=== PATIENT | male | born 1945 | race Caucasian/White ===

== ENCOUNTER 2021-07-04 07:04 | Emergency (ER) | payer OTHER ==
[~2021-07-04] VITALS: Ht 167.6 cm; Wt 107.0 kg
[2021-07-04 07:15] VITALS: BP_SYST 137
[2021-07-04] MEDS ORDERED: DIPHENHYDRAMINE HCL 50 MG CAPSULE PO ONE (07:30)
[2021-07-04] MEDS ORDERED: LORATADINE 10 MG TABLET PO ONE (07:30)
[2021-07-04] MEDS ORDERED: HYDR-3610 PO (07:34)
[2021-07-04] MEDS ORDERED: GLIP5TAB13 PO ×2 (07:34)
[2021-07-04] MEDS ORDERED: LIP80 PO (07:34)
[2021-07-04] MEDS ORDERED: DULA4.5P (07:34)
[2021-07-04] MEDS ORDERED: FEBU40TA PO (07:34)
[2021-07-04] MEDS ORDERED: NOR10 PO (07:34)
[2021-07-04] MEDS ORDERED: LORA-259 PO (07:34)
[2021-07-04] MEDS ORDERED: FURO-149 PO (07:34)
[2021-07-04] MEDS ORDERED: METF-518 PO ×2 (07:34)
[2021-07-04] MEDS ORDERED: CLOP75TA32 PO (07:38)
[2021-07-04] MEDS ORDERED: ASPI-1393 PO (07:38)
[2021-07-04] MEDS ORDERED: METO50TA7 PO (07:38)
[2021-07-04] MEDS ORDERED: BEN50 PO (07:41)
[2021-07-04] MEDS ORDERED: HYDC2.5% TP (07:41)
[2021-07-04] MEDS ORDERED: FEXO-25 PO (07:44)
[2021-07-04] MEDS ORDERED: EPIN0.3P3 IM (07:44)
[2021-07-04 08:00] VITALS: BP_SYST 139
== END 2021-07-04 08:00 | disposition home or self-care (01) ==
LOC: SED 07:04
DX: L20.9 Atopic dermatitis, unspecified (principal); E11.9 Type 2 diabetes mellitus without complications; Z79.899 Other long term (current) drug therapy; Z79.84 Long term (current) use of oral hypoglycemic drugs
CPT/HCPCS: 99283; Q0163

== ENCOUNTER 2021-11-14 08:13 | Inpatient (IN) | payer OTHER ==
[2021-11-14] VITALS (10 sets, daily range): BP systolic 60–133
[~2021-11-14] VITALS: Ht 167.6 cm; Wt 102.7 kg
[~2021-11-14 08:13] MED LIST: ASPI-1393 PO; BEN50 PO; CLOP75TA32 PO; DULA4.5P; EPIN0.3P3 IM; FEBU40TA PO; FEXO-25 PO; FURO-149 PO; GLIP5TAB13 PO; HYDC2.5% TP; LIP80 PO; LORA-259 PO; METF-518 PO; METO50TA7 PO; NOR10 PO
--- NOTE | 2021-11-14 08:13 | NUR ---
Pt to bed 1 for evaluation. Report received from [facility].
--- NOTE | 2021-11-14 08:13 | NUR ---
Dr. Lu at bedside to assess. 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
--- NOTE | 2021-11-14 08:14 | NUR ---
Pt BIBA from home. Pt to bed #1, pt is cool to the touch and is lethargic. Pt is awake and alert but very weak. 2L IV initiated bolus on left 20g IV that was placed by medics in route. NKA. Pt has hx of DM, cardiac disorders and CABG. HR at 110 and BP is at 71/56. Placed bed in trandelenburg position. BS checked and results were 65. RT at bedside doing ABG's.
--- NOTE | 2021-11-14 08:15 | NUR ---
EKG performed at BS by RN students. Physician given copy of EKG for review.
[2021-11-14] MEDS ORDERED: DEXTROSE 50% JECT 50 ML DISP.SYRIN ONE (08:28)
[2021-11-14] MEDS ORDERED: cefTRIAXone 1 GM IVPB PREMIX 50 ML IV ONE (08:30)
[2021-11-14] MEDS ORDERED: DEXTROSE 50% JECT 50 ML DISP.SYRIN IVP ONE (08:30)
[2021-11-14] MEDS ORDERED: NS 1000 ML IV.SOLN IV ONE (08:30)
--- NOTE | 2021-11-14 08:30 | NUR ---
Pt placed on NC running at 3L. Pt still hypotensive. D50 given IV push.
--- NOTE | 2021-11-14 08:45 | NUR ---
Portable CXR done at bedside.
--- NOTE | 2021-11-14 08:53 | NUR ---
Dr. Lu at bedside preparing to place Central line in pt.
[2021-11-14] MEDS ORDERED: NOREPINEPHRINE BITARTRATE 4 MG in NS 246 ML IV ONE (09:30)
--- NOTE | 2021-11-14 09:40 | NUR ---
Called [facility] to bring the Levophed order medication. They stated they will bring medication as soon as possible.
[2021-11-14] MEDS ORDERED: CLOP75TA32 PO (09:42)
[2021-11-14] MEDS ORDERED: PANT20TA2 PO (09:42)
[2021-11-14] MEDS ORDERED: LORA-259 PO (09:42)
--- NOTE | 2021-11-14 09:42 | NUR ---
Medication reconciliation completed with information provided by PT'S FAMILY MEMBER. Any prior medication reconciliation on file was reviewed and corrected.
[2021-11-14 09:49] LABS: ANION GAP 22 (5-15); CHLORIDE 101 mmol/L (98-107); CREATININE 4.88 mg/dL (0.55-1.30); GLUCOSE 167 mg/dL (70-99); POTASSIUM 4.4 mmol/L (3.5-5.1); SODIUM SERUM 137 mmol/L (136-145); UREA NITROGEN, BLOOD 45 mg/dL (8-21)
[2021-11-14 09:54] LABS: INR 1.4 (0.80-1.20)
[2021-11-14 10:01] LABS: BASOPHILS # (AUTO) 0.1 K/uL (0.0-0.2); BASOPHILS % (AUTO) 0.2 % (0.0-2.0); EOSINOPHILS # (AUTO) 0.1 K/uL (0.0-0.4); EOSINOPHILS % (AUTO) 0.2 % (0.0-4.0); HEMATOCRIT 29.7 % (36-54); HEMOGLOBIN 9.4 g/dL (14.0-18.0); LYMPHOCYTES # (AUTO) 0.7 K/uL (1.0-5.5); LYMPHOCYTES % (AUTO) 2.2 % (20.5-51.5); MEAN CORPUSCULAR HEMOGLOBIN 27 pg (27-31); MEAN CORPUSCULAR HGB CONC 32 % (32-36); MEAN CORPUSCULAR VOLUME 87 fL (79.0-98.0); MONOCYTES # (AUTO) 1.4 K/uL (0.0-1.0); MONOCYTES % (AUTO) 4.6 % (1.7-9.3); NEUTROPHILS # (AUTO) 28.2 K/uL (1.8-7.7); NEUTROPHILS % (AUTO) 92.8 % (40.0-70.0); PLATELET COUNT (AUTO) 116 K/uL (130-430); RED BLOOD CELL COUNT(AUTO) 3.42 MIL/uL (4.2-6.2); RED CELL DISTRIBUTION WIDTH 17.8 % (9.0-15.0)
[2021-11-14 10:03] LABS: WHITE BLOOD COUNT (AUTO) 30.4 K/uL (4.8-10.8)
[2021-11-14 10:06] LABS: ALANINE AMINOTRANSFERASE 366 U/L (12-78); ALBUMIN 1.6 g/dL (3.4-4.8); PROTHROMBIN TIME 14.7 SECS (9.5-12.5); TOTAL BILIRUBIN 4.1 mg/dL (0.0-1.0)
[2021-11-14] MEDS ORDERED: NACL 0.9% 1,000 ML IV ONE (10:15)
[2021-11-14] MEDS ORDERED: ASPIRIN 325 MG TABLET PO ONE (10:15)
--- NOTE | 2021-11-14 10:15 | NUR ---
Critical labs called and reported to Dr. Lu. Pt to CT via burke accompanied by EMMETT.
[2021-11-14 10:20] LABS: ASPARTATE AMINOTRANSFERASE 1052 U/L (10-37)
--- NOTE | 2021-11-14 10:38 | NUR ---
Pt is A&Ox4. BP currently at 92/41 and HR at 105, O2 at 95% with NC running at 5L. Ultrasound currently being done at bedside and is at bedside as well. Central line on right neck intact and dressed.
--- NOTE | 2021-11-14 10:43 | NUR ---
Covid swab done and sent to lab.
--- NOTE | 2021-11-14 11:03 | NUR ---
KULDEEP BS BY RN STUDERNT RESULTS 145 MADE MD FUENTES AWARE
--- NOTE | 2021-11-14 11:55 | NUR ---
16F Coudey Catheter placed using sterile technique.
--- NOTE | 2021-11-14 12:43 | NUR ---
Patient will be admitted to care of Dr. Benito. Admitted to ICU unit. Will go to room 4. Belongings list completed. Complete and up to date summary report printed. SBAR report to be given at bedside with opportunity for questions.
[2021-11-14] MEDS ORDERED: VANCOMYCIN HCL 1,500 MG in NS 250 ML IV ONE (13:00)
--- NOTE | 2021-11-14 13:00 | NUR ---
Alireza Seo RN is caring for this patient today
[2021-11-14] MEDS ORDERED: NALOXONE HCL 0.4 MG/ML AMP (NARCAN) IVP PRN ×2 (13:15)
[2021-11-14] MEDS ORDERED: MAGNESIUM SULFATE 50 ML IV PRN (13:15)
[2021-11-14] MEDS ORDERED: PIPERACILLIN/TAZO 3.375/DEX-IS 50 ML IV SCH (13:15)
[2021-11-14] MEDS ORDERED: ACETAMINOPHEN 325 MG TABLET PO PRN (13:15)
[2021-11-14] MEDS ORDERED: POTASSIUM CHLORIDE 20 MEQ TAB.PRT.SR PO PRN (13:15)
[2021-11-14] MEDS ORDERED: ZOLPIDEM TARTRATE 5 MG TABLET PO PRN (13:15)
[2021-11-14] MEDS ORDERED: MUPIROCIN 2% TOPICAL OINTMENT 22 GM NS PRN (13:15)
[2021-11-14] MEDS ORDERED: LORazepam 2 MG/ML VIAL IVP PRN (13:15)
[2021-11-14] MEDS ORDERED: ONDANSETRON HCL 4 MG/2 ML VIAL IVP PRN (13:15)
--- NOTE | 2021-11-14 13:15 | NUR ---
Called Dr. House with a consult, spoke with Omar from the exchange
--- NOTE | 2021-11-14 13:15 | NUR ---
Called Dr. Davison with a consult, spoke with Lidia from the exchange
[2021-11-14] MEDS ORDERED: ZOSYN (PIPERACILLIN/TAZO) 2.25 GM in DEX-ISO (50ml) IV ONE (13:30)
--- NOTE | 2021-11-14 13:30 | NUR ---
PT [id number], CALLUM HAHN TAKING CARE OF PT, PT ON LEVOPHED DRIP, PLACED ON 2L NC///PT LEVOPHED BEING TITRATED NOW//PT LOSES STRENGTH WITH ACTIVITY, BUT PT STATES FEELS BETTER NOW//TROPONIN IS UP AND DOWN, BUT PT DENIES CHEST PAIN, IS ON 2L O2 AND TOLERATING AT 94%//MW
--- NOTE | 2021-11-14 13:30 | NUR ---
Called Dr. Sommer with a consult,spoke with Martine from doctors office
[2021-11-14] MEDS: NACL 0.9% 1,000 ML IV SCH ×2 (13:41→21:40)
[2021-11-14] MEDS: ZOSYN (PIPERACILLIN/TAZO) 2.25 GM in DEX-ISO (50ml) IV SCH ×2 (13:42→22:00)
[2021-11-14] MEDS ORDERED: NS 500 ML IV ONE ×2 (14:15→20:30)
--- NOTE | 2021-11-14 15:15 | NUR ---
Called Dr. Montejo with a consult, Dr. Newman donor services team leader at this time. Spoke with Flaiva from doctors office
[2021-11-14 17:06] LABS: TOTAL IRON BIND. CAPACITY 200 ug/dL (250-450)
[2021-11-14 17:13] LABS: ACETAMINOPHEN < 1 ug/mL (1-30)
[2021-11-14] MEDS: MORPHINE 2 MG/ML INJ. SYRINGE IVP PRN (18:43)
--- NOTE | 2021-11-14 18:49 | NUR ---
levophed turned off, paged dr joshua rowan calcitonin level//mw
--- NOTE | 2021-11-14 19:16 | NUR ---
SPOKE TO DR CARO RE PROCALCITONIN LEVEL, AND LEVOPHED OFF//NO ORDERS//POSSPARACENTESIS IM.A.M.//KT
--- NOTE | 2021-11-14 19:45 | NUR ---
RECEIVED REPORT FOR PT. LEVOPHED HAS BEEN STOPPED AND PT IS CURRENTLY ON FLUID. IS AT BEDSIDE. VITALS ARE STABLE. LORENE BOYER
[2021-11-14] MEDS: HEPARIN SODIUM,PORCINE 5,000 UNITS/ML VIAL SUBCUT SCH (21:00)
[2021-11-14] MEDS: metroNIDAZOLE 500 mg/NS 100 ML IV SCH (21:00)
[2021-11-15] VITALS (23 sets, daily range): BP systolic 90–126
--- NOTE | 2021-11-15 02:55 | NUR ---
Critical troponin of 602. MD Roldan was informed
[2021-11-15] MEDS: NACL 0.9% 1,000 ML IV SCH ×4 (03:26→18:32)
[2021-11-15] MEDS: ZOSYN (PIPERACILLIN/TAZO) 2.25 GM in DEX-ISO (50ml) IV SCH (05:25)
[2021-11-15] MEDS: METOPROLOL SUCCINATE 25 MG TAB.SR.24H (TOPROL XL) PO SCH ×3 (06:07→20:25)
[2021-11-15 07:05] LABS: INR 1.3 (0.80-1.20); PROTHROMBIN TIME 13.1 SECS (9.5-12.5)
[2021-11-15 07:18] LABS: BASOPHILS % (AUTO) 0.1 % (0.0-2.0); EOSINOPHILS # (AUTO) 0.3 K/uL (0.0-0.4); EOSINOPHILS % (AUTO) 2.6 % (0.0-4.0); HEMATOCRIT 31.6 % (36-54); HEMOGLOBIN 10.3 g/dL (14.0-18.0); LYMPHOCYTES # (AUTO) 0.4 K/uL (1.0-5.5); LYMPHOCYTES % (AUTO) 3.2 % (20.5-51.5); MEAN CORPUSCULAR HEMOGLOBIN 27 pg (27-31); MEAN CORPUSCULAR HGB CONC 33 % (32-36); MEAN CORPUSCULAR VOLUME 84 fL (79.0-98.0); MONOCYTES # (AUTO) 0.4 K/uL (0.0-1.0); NEUTROPHILS # (AUTO) 11.9 K/uL (1.8-7.7); NEUTROPHILS % (AUTO) 91.1 % (40.0-70.0); RED BLOOD CELL COUNT(AUTO) 3.77 MIL/uL (4.2-6.2); RED CELL DISTRIBUTION WIDTH 17.1 % (9.0-15.0); WHITE BLOOD COUNT (AUTO) 13.1 K/uL (4.8-10.8)
--- NOTE | 2021-11-15 07:30 | NUR ---
Author: Jovanna Mccarthy RN Received report from SHENA Carvajal. Patient is in bed, noted with confusion and agitation. Patient's partner : Angela Delgadillo at bedside. Kept oxygen on and promoted safety & security.
[2021-11-15 07:49] LABS: ALANINE AMINOTRANSFERASE 782 U/L (12-78); ALBUMIN 1.6 g/dL (3.4-4.8); AMYLASE 47 U/L (0-100); ANION GAP 18 (5-15); ASPARTATE AMINOTRANSFERASE 1258 U/L (10-37); BILIRUBIN,DIRECT 4.2 mg/dL (0.0-0.3); CALCIUM 7.2 mg/dL (8.4-11.0); CHLORIDE 100 mmol/L (98-107); CHOLESTEROL 93 mg/dL (<200); GLUCOSE 127 mg/dL (70-99); HDL CHOLESTEROL 9 mg/dL (>45); LDL CHOLESTEROL 35 mg/dL (<100); LIPASE 224 U/L (73-393); POTASSIUM 4.1 mmol/L (3.5-5.1); SODIUM SERUM 135 mmol/L (136-145); TOTAL BILIRUBIN 4.9 mg/dL (0.0-1.0); TRIGLYCERIDES 234 mg/dL (30-150); UREA NITROGEN, BLOOD 69 mg/dL (8-21)
--- NOTE | 2021-11-15 07:56 | NUR ---
PAGED DR. WINKLER FOR ORDERS SPOKE TO: DIRECT MESSAGE
--- NOTE | 2021-11-15 08:02 | NUR ---
Author: Jovanna Mccarthy RN Patient is still trying to remove his oxygen & agitated & trying to get out of bed. Continue to remind the patient the importance of keeping his O2 and IV lines on. Called Dr. Benito & Received order from Dr. Benito for Bilateral wrist restraints. Continue to check good skin color & circulation.
--- NOTE | 2021-11-15 08:06 | NUR ---
NOTIFIED OF CONSULT ORDERING PHY: REASON FOR CONSULT: POSS CHOLECYSTITIS DIALED: [phone] SPOKE TO: KATE
[2021-11-15 08:33] LABS: C-REACTIVE PROTEIN QUANT 32.9 mg/dL (0-0.5)
[2021-11-15] MEDS: metroNIDAZOLE 500 mg/NS 100 ML IV SCH ×2 (08:48→21:35)
[2021-11-15] MEDS: HEPARIN SODIUM,PORCINE 5,000 UNITS/ML VIAL SUBCUT SCH ×2 (08:50→20:24)
[2021-11-15 09:37] LABS: PLATELET COUNT (AUTO) 65 K/uL (130-430)
--- NOTE | 2021-11-15 12:01 | NUR ---
Dietitian Recommendations * Change diet to Renal, ROSA w/ Jose daily * Encourage PO intake Please refer to Nutrition Assessment for details. Addendum: 11/15/21 at [address] Amended: Links added.
[2021-11-15] MEDS ORDERED: VANCOMYCIN HCL 1,500 MG in NS 250 ML IV ONE (13:00)
[2021-11-15] MEDS ORDERED: PROPOFOL DRIP 100 ML IV ONE (13:54)
--- NOTE | 2021-11-15 14:00 | NUR ---
Dr. House ordered Urine culture. Urine specimen collected & sent to the lab. Jovanna Mccarthy RN
--- NOTE | 2021-11-15 14:24 | NUR ---
Received a call from Rosa in the lab. Critical labs reported: -Positive blood cultures with GRAM NEG RODS from both sets. Will notify MD and primary nurse. Lory Raya, MSN, CHEMICAL PLANT MANAGER, CCNS, CCRN, CNRN, PhD
--- NOTE | 2021-11-15 14:30 | NUR ---
-Positive blood cultures with GRAM NEG RODS from both sets. Paged Dr. Schafer and awaiting for call back.
--- NOTE | 2021-11-15 15:15 | NUR ---
DR. CANADA AWARE OF BLOOD CULTURE RESULTS. VANCOMYCIN WAS DISCONTINUED. ORDERED MEREM IV ATB.
--- NOTE | 2021-11-15 16:20 | NUR ---
PAGED FOR ORDERS SECOND ATTEMPT DIALED: [phone]
[2021-11-15] MEDS: NOREPINEPHRINE BITARTRATE 4 MG in NS 246 ML IV PRN (17:35)
--- NOTE | 2021-11-15 19:30 | NUR ---
PM assessment Received report from AM nurse using SBAR
[2021-11-15] MEDS: MEROPENEM 500 MG IVPB PREMIX 50 ML IV SCH (20:24)
--- NOTE | 2021-11-15 21:00 | NUR ---
BM Patient had a bowel movement. Cleaned patient and changed new linens
[2021-11-16] VITALS (36 sets, daily range): BP systolic 84–130
[2021-11-16] MEDS: HALOPERIDOL LACTATE 5 MG/ML VIAL IVP PRN (00:39)
--- NOTE | 2021-11-16 02:00 | NUR ---
PICC line dressing change using sterile technique
--- NOTE | 2021-11-16 03:00 | NUR ---
Pain Patient complained of leg 7/10. Provided PRN morphine
--- NOTE | 2021-11-16 03:30 | NUR ---
BM Patient had another BM. Repositioned and changed all linens
[2021-11-16] MEDS: NACL 0.9% 1,000 ML IV SCH ×3 (03:51→21:15)
[2021-11-16] MEDS: MORPHINE 2 MG/ML INJ. SYRINGE IVP PRN ×3 (04:00→13:56)
[2021-11-16 07:02] LABS: BASOPHILS % (AUTO) 0.3 % (0.0-2.0); EOSINOPHILS # (AUTO) 0.1 K/uL (0.0-0.4); EOSINOPHILS % (AUTO) 0.9 % (0.0-4.0); HEMATOCRIT 30.1 % (36-54); LYMPHOCYTES # (AUTO) 0.5 K/uL (1.0-5.5); LYMPHOCYTES % (AUTO) 6.5 % (20.5-51.5); MEAN CORPUSCULAR HEMOGLOBIN 28 pg (27-31); MEAN CORPUSCULAR HGB CONC 33 % (32-36); MEAN CORPUSCULAR VOLUME 84 fL (79.0-98.0); MONOCYTES # (AUTO) 0.6 K/uL (0.0-1.0); NEUTROPHILS # (AUTO) 6.8 K/uL (1.8-7.7); NEUTROPHILS % (AUTO) 84.3 % (40.0-70.0); RED CELL DISTRIBUTION WIDTH 17.6 % (9.0-15.0); WHITE BLOOD COUNT (AUTO) 8.1 K/uL (4.8-10.8)
[2021-11-16 07:22] LABS: ANION GAP 18 (5-15); CALCIUM 7.5 mg/dL (8.4-11.0); CHLORIDE 103 mmol/L (98-107); CREATININE 6.11 mg/dL (0.55-1.30); GLUCOSE 211 mg/dL (70-99); POTASSIUM 4.8 mmol/L (3.5-5.1); SODIUM SERUM 134 mmol/L (136-145); UREA NITROGEN, BLOOD 83 mg/dL (8-21)
[2021-11-16 07:27] LABS: ALANINE AMINOTRANSFERASE 583 U/L (12-78); ALBUMIN 1.5 g/dL (3.4-4.8); ASPARTATE AMINOTRANSFERASE 697 U/L (10-37); TOTAL BILIRUBIN 5.6 mg/dL (0.0-1.0)
[2021-11-16 07:56] LABS: PLATELET COUNT (AUTO) 36 K/uL (130-430)
[2021-11-16 08:07] LABS: CEA 1.9 ng/mL (0.0-4.7)
--- NOTE | 2021-11-16 08:57 | NUR ---
Called Dr. Steward with a consult,spoke with Felicity
[2021-11-16] MEDS: METOPROLOL SUCCINATE 25 MG TAB.SR.24H (TOPROL XL) PO SCH ×2 (09:00→21:13)
[2021-11-16] MEDS: MEROPENEM 500 MG IVPB PREMIX 50 ML IV SCH ×2 (09:25→21:14)
[2021-11-16] MEDS: metroNIDAZOLE 500 mg/NS 100 ML IV SCH ×2 (09:25→21:14)
--- NOTE | 2021-11-16 09:58 | NUR ---
RT NOTES O2 to 2L, RN made aware
[2021-11-16 10:06] LABS: ANTI NUCLEAR AB WITH REFLEX Negative (Negative); HEPATITIS A AB, IgM Negative (Negative); HEPATITIS B CORE AB, IgM Negative (Negative); HEPATITIS B SURFACE AG Negative (Negative)
[2021-11-16 11:06] LABS: AFP, TUMOR MARKER 1.2 ng/mL (0.0-8.4)
--- NOTE | 2021-11-16 12:01 | NUR ---
Called Dr. Russo with a consult, spoke with Oriana from doctors office
[2021-11-16] MEDS ORDERED: HEPARIN SODIUM,PORCINE 5,000 UNITS/ML VIAL MC ONE (19:15)
[2021-11-16] MEDS ORDERED: HEPARIN SODIUM,PORCINE 5,000 UNITS/ML VIAL ONE (19:19)
[2021-11-17] VITALS (30 sets, daily range): BP systolic 91–157
[2021-11-17] MEDS ORDERED: METHYLPREDNISOLONE SOD SUCC 40 MG/ML VIAL ONE ×2 (00:51→05:09)
[2021-11-17] MEDS: methylPREDNISolone SOD SUCC/PF 62.5 MG/ML VIAL IVP SCH ×4 (00:54→18:24)
[2021-11-17] MEDS: MORPHINE 2 MG/ML INJ. SYRINGE IVP PRN ×2 (03:33→13:31)
[2021-11-17] MEDS: NACL 0.9% 1,000 ML IV SCH ×3 (03:34→18:24)
[2021-11-17 06:02] LABS: ANION GAP 17 (5-15); CALCIUM 8.1 mg/dL (8.4-11.0); CHLORIDE 104 mmol/L (98-107); GLUCOSE 113 mg/dL (70-99); POTASSIUM 5.1 mmol/L (3.5-5.1); SODIUM SERUM 135 mmol/L (136-145)
[2021-11-17 06:11] LABS: ALANINE AMINOTRANSFERASE 424 U/L (12-78); ALBUMIN 1.5 g/dL (3.4-4.8); ASPARTATE AMINOTRANSFERASE 269 U/L (10-37)
[2021-11-17 06:15] LABS: UREA NITROGEN, BLOOD 101 mg/dL (8-21)
[2021-11-17 06:46] LABS: INR 1.2 (0.80-1.20); PROTHROMBIN TIME 12.5 SECS (9.5-12.5)
[2021-11-17 07:37] LABS: BASOPHILS % (AUTO) 0.2 % (0.0-2.0); EOSINOPHILS % (AUTO) 0.5 % (0.0-4.0); HEMOGLOBIN 10.5 g/dL (14.0-18.0); LYMPHOCYTES # (AUTO) 0.3 K/uL (1.0-5.5); LYMPHOCYTES % (AUTO) 3.3 % (20.5-51.5); MEAN CORPUSCULAR HEMOGLOBIN 28 pg (27-31); MEAN CORPUSCULAR HGB CONC 33 % (32-36); MEAN CORPUSCULAR VOLUME 84 fL (79.0-98.0); MONOCYTES # (AUTO) 0.5 K/uL (0.0-1.0); MONOCYTES % (AUTO) 5.9 % (1.7-9.3); NEUTROPHILS # (AUTO) 6.9 K/uL (1.8-7.7); NEUTROPHILS % (AUTO) 90.1 % (40.0-70.0); RED CELL DISTRIBUTION WIDTH 17.7 % (9.0-15.0); WHITE BLOOD COUNT (AUTO) 7.7 K/uL (4.8-10.8)
[2021-11-17 07:45] LABS: ALPHA-1-ANTITRYPSIN, S 205 mg/dL (101-187)
[2021-11-17 07:46] LABS: FERRITIN 5460 ng/mL (30-400)
[2021-11-17] MEDS: MEROPENEM 500 MG IVPB PREMIX 50 ML IV SCH ×2 (09:08→21:11)
[2021-11-17] MEDS: metroNIDAZOLE 500 mg/NS 100 ML IV SCH ×2 (09:08→21:12)
[2021-11-17] MEDS: METOPROLOL SUCCINATE 25 MG TAB.SR.24H (TOPROL XL) PO SCH ×2 (09:10→21:00)
[2021-11-17 09:26] LABS: PLATELET COUNT (AUTO) 30 K/uL (130-430)
[2021-11-17] MEDS ORDERED: ALBUMIN HUMAN 25% 100 ML IV ONE ×2 (10:06)
[2021-11-17] MEDS ORDERED: HEPARIN SODIUM,PORCINE 5,000 UNITS/ML VIAL IV ONE (10:30)
[2021-11-17] MEDS: HALOPERIDOL LACTATE 5 MG/ML VIAL IVP PRN (14:22)
--- NOTE | 2021-11-17 20:12 | NUR ---
Received report on pt. Pt is currently sleeping with girlfriend and daughter at beside. Pt's vitals are stable no temp at this time. Pt is slightly confused and daughter request no more Ativan to be given to the pt. Will continue to monitor. Addendum: 11/17/[address] [facility] Two manual machinist Received report on pt. Pt is currently sleeping with girlfriend and daughter at beside. Pt's vitals are stable no temp at this time. Pt is slightly confused and daughter request no more Ativan to be given to the pt. Will continue to monitor. Alena Malone RN
[2021-11-18] VITALS (23 sets, daily range): BP systolic 90–174
[2021-11-18] MEDS: methylPREDNISolone SOD SUCC/PF 62.5 MG/ML VIAL IVP SCH ×2 (00:36→06:50)
[2021-11-18] MEDS: HALOPERIDOL LACTATE 5 MG/ML VIAL IVP PRN (00:37)
[2021-11-18] MEDS ORDERED: NOREPINEPHRINE 4 MG/4 ML VIAL IV ONE (02:39)
[2021-11-18] MEDS: NOREPINEPHRINE BITARTRATE 4 MG in NS 246 ML IV PRN ×3 (03:21→12:54)
[2021-11-18] MEDS: NACL 0.9% 1,000 ML IV SCH ×2 (04:58→14:48)
--- NOTE | 2021-11-18 07:30 | NUR ---
REPORT RECEIVED FROM SOCIAL SECURITY ASSESSOR, PATIENT IN BED, NO S/S OF DISTRESS, ADMITTED ON 11/14/21 WITH DIAGNOSIS OF ACUTE EMBOLISM AND THROMBOSIS OF UNSPECIFIED VEIN/ SEPSIS, REPORTED WITH ALOC & COMBATIVENESS IN ER, CURRENT STATE PATIENT HAS SEPTIC SHOCK, TANSAMINITIS, ANEMIA, OR TYPE 2, HYPERBILIRUBINEMIA, HYPOCALCEMIA, DM, CAD, HX OF HTN, THROMBOCYTOPENIA. BLOOD DRAWN BY SOCIAL SECURITY ASSESSOR AND PENDING RESULTS. PT RECEIVED HYDA SCAN YESTERDAY, DIALYSIS YESTERDAY WITH 700ML OUT BUT HAD TO STOP DUE TO DECREASED BLOOD PRESSURE, MAY HAVE REPEAT DIALYSIS TODAY, ON LEVOPHED 0.7MCG/KG/MIN TO KEEP MAP >65, NS AT 125ML/HR, RUNNING INTO NEWLY PLACED DIALYSIS SITE IN RIGHT IJ, GIRLFRIEND AT BEDSIDE, PT SLEEPING, ON 3L NASAL CANULA BUT PATIENT HAD NASAL PRONGS TO THE SIDE UPON INITIAL ASSESSMENT AND O2 SAT IS 97%, PLACED PATIENT ON ROOM AIR AND WILL MONITOR FOR TOLERANCE, GIRLFRIEND STATES ATIVAN CAUSES PATIENT AGITATION AND ASKED TO REFRAIN FROM GIVING IT TO HIM, STATES HE ATE AN APPLE SAUCE DURING THE NIGHT, GIRLFRIEND STATES SHE WILL ATTEMPT TO FEED PATIENT ONCE HE IS MORE AWAKE. REDDY IN PLACE, NO URINE OUTPUT DURING SOCIAL SECURITY ASSESSOR, SAFETY MEASURES IN PLACE, BED IN LOWEST LOCKED POSITION, CALL LIGHT WITHIN REACH, EDUCATED GIRLFRIEND ON PLAN OF CARE FOR THE DAY, WILL CONTINUE TO MONITOR.
[2021-11-18 07:58] LABS: BASOPHILS % (AUTO) 0.1 % (0.0-2.0); HEMATOCRIT 36.4 % (36-54); HEMOGLOBIN 11.7 g/dL (14.0-18.0); LYMPHOCYTES # (AUTO) 0.7 K/uL (1.0-5.5); LYMPHOCYTES % (AUTO) 5.1 % (20.5-51.5); MEAN CORPUSCULAR HEMOGLOBIN 27 pg (27-31); MEAN CORPUSCULAR HGB CONC 32 % (32-36); MEAN CORPUSCULAR VOLUME 84 fL (79.0-98.0); MONOCYTES # (AUTO) 0.5 K/uL (0.0-1.0); MONOCYTES % (AUTO) 3.9 % (1.7-9.3); NEUTROPHILS # (AUTO) 12.1 K/uL (1.8-7.7); NEUTROPHILS % (AUTO) 90.9 % (40.0-70.0); PLATELET COUNT (AUTO) 97 K/uL (130-430); RED BLOOD CELL COUNT(AUTO) 4.32 MIL/uL (4.2-6.2); RED CELL DISTRIBUTION WIDTH 18.6 % (9.0-15.0); WHITE BLOOD COUNT (AUTO) 13.4 K/uL (4.8-10.8)
[2021-11-18 08:14] LABS: ANION GAP 22 (5-15); CALCIUM 7.4 mg/dL (8.4-11.0); CHLORIDE 99 mmol/L (98-107); CREATININE 5.87 mg/dL (0.55-1.30); GLUCOSE 280 mg/dL (70-99); POTASSIUM 5.1 mmol/L (3.5-5.1); SODIUM SERUM 133 mmol/L (136-145); UREA NITROGEN, BLOOD 96 mg/dL (8-21)
[2021-11-18] MEDS: MEROPENEM 500 MG IVPB PREMIX 50 ML IV SCH ×2 (08:17→21:52)
[2021-11-18 08:29] LABS: ALBUMIN 1.5 g/dL (3.4-4.8); BILIRUBIN,DIRECT 6.1 mg/dL (0.0-0.3); TOTAL BILIRUBIN 8.1 mg/dL (0.0-1.0)
--- NOTE | 2021-11-18 09:52 | NUR ---
PER DIALYSIS NURSE, DR YUEN ORDERED ALBUMIN 25% IN 100ML TO BE GIVEN DURING DIALYSIS FOR DECREASED BLOOD PRESSURE.
[2021-11-18] MEDS ORDERED: ALBUMIN HUMAN 25% 100 ML IV ONE ×2 (10:00→10:16)
[2021-11-18] MEDS ORDERED: HEPARIN SODIUM,PORCINE 5,000 UNITS/ML VIAL MC ONE (10:45)
--- NOTE | 2021-11-18 10:53 | NUR ---
HOLDING 0900 FALGYL AND METOPROLOL UNTIL DIALYSIS IS COMPLETE.
[2021-11-18] MEDS: metroNIDAZOLE 500 mg/NS 100 ML IV SCH ×2 (11:48→21:52)
[2021-11-18] MEDS ORDERED: FLUCONAZOLE 100 mg/ NS 50 ML IV ONE (12:00)
[2021-11-18] MEDS: METOPROLOL SUCCINATE 25 MG TAB.SR.24H (TOPROL XL) PO SCH ×2 (12:47→21:00)
[2021-11-18 13:07] LABS: ANTI-SMOOTH MUSCLE AB 9 Units (0-19)
--- NOTE | 2021-11-18 13:40 | NUR ---
Nutrition F/U Admitting Diagnosis Sepsis, acute embolism and thrombosis of unspecified vein Reviewed Pertinent Medical/Surgical Hx Medical Record RN Medical History Comment: Multiple MIs w/ cardiac stent placement, CABG, DM, HTN, BPH, CKD stage III, kidney stones w/ lithotripsy, gout. Pt also found w/ CHF, metabolic encephalopathy, severe malnutrition, elevated troponins, and CAD. SARS-CoV-2 Ag (Rapid) Negative 11/14, Hep C pending 11/14 Subjective Information Pt due for high risk F/U. Per EMR review, pt on NC x2 days. Eric score 13, jaundiced skin. Last BM x2 11/15. Pt on HD, last HD ordered today. Per ICU rounds, pt PO intake is improving, pt consumed 50% of breakfast today. Pt receiving HIDA scan to r/o gallstones or kidney stones. Current Diet Order/Nutrition Support 2gm Na, Cardiac x 4 day Education Provided Not Indicated Pertinent Medications MgSO4, K-Dur, Colace Pertinent Labs Na 133 L, BUN 96 H, Cr 5.87 H, BG 280 H, Bilirubin 8.1 H, AST 92 H, ALT 251 H Height (Feet) 5 feet Height (Inches) 6.00 inches Weight (Pounds) 201 pounds no changes since 11/14 Patient Weight 91.172 kg Body Mass Index 32.44 kg/m2 %IBW 142 [place]/Adjusted Body Weight 142#/64.5 kg; adj. BW: 156#/71.3 kg Recent Weight Change No - unable to verify Weight Status Obese Usual Diet At Home unable to verify (*ongoing) Estimated Energy Expenditure (kcals/day) 1808-3232 kcals/day (30-35 kcals/kg Adj. IBW d/t obesity and sepsis) (*NEW) Estimated Protein Required (g/day) 85-107 g/day (1.2-1.5 g/kg Adj. IBW d/t obesity, sepsis and CKD/HD) (*ongoing) Estimated Fluid Required (l/day) Per data analyst d/t CKD and CHF Problem/Etiology/Signs/Symptoms Altered nutrition-related labs R/T renal dysfunction AEB abnormal Na, BUN, and Cr lab values. (*ongoing) Increased nutritional needs R/T metabolic demands AEB estimated nutritional requirements for sepsis. (*ongoing) Expected Outcomes/Goals Monitor tolerance of intake w/ goal of pt meeting greater than 80% of estimated needs, labs trending WNL, normal GI function, skin integrity, wt maintenance. Dietitian Recommendations * Change diet to Renal, CCHO w/ Nepro BID * ONS provides 840 kcals/day and 38 g protein/day * Encourage PO intake Follow Up High Risk: F/U in 2-3 days Follow Up By Nov 21, 2021 Signed: 11/18/21 at 1344 by Karrie OWUSU <Co-Signature Required> Co-Signed: 11/18/21 at [address]
--- NOTE | 2021-11-18 13:44 | NUR ---
Dietitian Recommendations * Change diet to Renal, CCHO w/ Feliparo BID * ONS provides 840 kcals/day and 38 g protein/day * Encourage PO intake LP, RD Please refer to Nutrition F/U for details. Signed: 11/18/21 at 1345 by Karrie OWUSU <Co-Signature Required> Co-Signed: 11/18/21 at [address]
--- NOTE | 2021-11-18 14:00 | NUR ---
PATIENT REPORT GENERALIZED PAIN, PROVIDED MORPHINE, WILL MONITOR FOR EFFECTIVE PAIN RELIEF.
[2021-11-18] MEDS: MORPHINE 2 MG/ML INJ. SYRINGE IVP PRN (14:50)
[2021-11-18] MEDS ORDERED: methylPREDNISolone SOD SUCC/PF 62.5 MG/ML VIAL IVP ONE (16:15)
[2021-11-18] MEDS: EPOETIN ALFA-EPBX 4,000 UNITS/ML VIAL SUBCUT SCH (17:54)
--- NOTE | 2021-11-18 20:49 | NUR ---
RECEIVED REPORT ON PT AT 2020 AND VITALS ARE STABLE AND GIRL FRIEND IS AT BEDSIDE. PT'S GOWN IS OFF DUE TO HIS CONFUSED STATE AND HE IS TRYING TO GET OUT OF THE BED. WiLL CONTINUE TO MONITOR. LORENE BOYER
[2021-11-19] VITALS (21 sets, daily range): BP systolic 89–123
[2021-11-19] MEDS: NACL 0.9% 1,000 ML IV SCH ×3 (05:43→21:06)
[2021-11-19 06:43] LABS: BASOPHILS % (AUTO) 0.1 % (0.0-2.0); EOSINOPHILS % (AUTO) 0.1 % (0.0-4.0); HEMATOCRIT 32.5 % (36-54); HEMOGLOBIN 10.5 g/dL (14.0-18.0); LYMPHOCYTES # (AUTO) 0.6 K/uL (1.0-5.5); LYMPHOCYTES % (AUTO) 5.8 % (20.5-51.5); MEAN CORPUSCULAR HEMOGLOBIN 28 pg (27-31); MEAN CORPUSCULAR HGB CONC 32 % (32-36); MEAN CORPUSCULAR VOLUME 86 fL (79.0-98.0); MONOCYTES # (AUTO) 0.6 K/uL (0.0-1.0); NEUTROPHILS # (AUTO) 8.9 K/uL (1.8-7.7); PLATELET COUNT (AUTO) 90 K/uL (130-430); RED BLOOD CELL COUNT(AUTO) 3.78 MIL/uL (4.2-6.2); RED CELL DISTRIBUTION WIDTH 18.7 % (9.0-15.0); WHITE BLOOD COUNT (AUTO) 10.1 K/uL (4.8-10.8)
[2021-11-19 07:01] LABS: INR 2.1 (0.80-1.20)
--- NOTE | 2021-11-19 07:30 | NUR ---
RECEIVED REPORT FROM SOLUTION STRATEGIST, WILL CONTINUE CARE
[2021-11-19 08:27] LABS: ALANINE AMINOTRANSFERASE 170 U/L (12-78); ALBUMIN 1.9 g/dL (3.4-4.8); ANION GAP 23 (5-15); ASPARTATE AMINOTRANSFERASE 57 U/L (10-37); BILIRUBIN,DIRECT 7.9 mg/dL (0.0-0.3); CHLORIDE 97 mmol/L (98-107); POTASSIUM 4.8 mmol/L (3.5-5.1); SODIUM SERUM 132 mmol/L (136-145); TOTAL BILIRUBIN 10.1 mg/dL (0.0-1.0); UREA NITROGEN, BLOOD 98 mg/dL (8-21)
[2021-11-19 08:29] LABS: GLUCOSE 468 mg/dL (70-99)
[2021-11-19 08:30] LABS: CALCIUM 6.4 mg/dL (8.4-11.0)
[2021-11-19] MEDS: metroNIDAZOLE 500 mg/NS 100 ML IV SCH (09:00)
[2021-11-19] MEDS ORDERED: CALCIUM CHLORIDE 1 GM in NS 100 ML IV ONE (09:15)
[2021-11-19] MEDS ORDERED: GLUCOSE (DEXTROSE) ORAL GEL -Adults PO PRN (09:15)
[2021-11-19] MEDS ORDERED: D5W 1,000 ML IV PRN (09:15)
[2021-11-19] MEDS ORDERED: DEXTROSE 50% JECT 50 ML DISP.SYRIN IVP PRN (09:15)
[2021-11-19] MEDS: MEROPENEM 500 MG IVPB PREMIX 50 ML IV SCH ×2 (09:33→21:06)
[2021-11-19] MEDS: METOPROLOL SUCCINATE 25 MG TAB.SR.24H (TOPROL XL) PO SCH ×2 (09:34→21:00)
[2021-11-19] MEDS: INSULIN LISPRO SLIDING SCALE 100 UNITS/ML VIAL (humaLOG) SUBCUT PRN ×3 (10:56→21:40)
[2021-11-19] MEDS: FLUCONAZOLE 100 mg/ NS 50 ML IV SCH (12:19)
--- NOTE | 2021-11-19 16:46 | NUR ---
patient taken to get ct with contrast, on full monitoring during transfer and during scan, contrast injected into pigtail in right IJ, patient tolerated well and follow commands throughout, significant other at bedside thomas and she consented for the ct with contrast, patient back in room, no s/s of distress, will continue to monitor.
[2021-11-19] MEDS: methylPREDNISolone SOD SUCC/PF 62.5 MG/ML VIAL IVP SCH ×2 (17:16→21:06)
--- NOTE | 2021-11-19 18:25 | NUR ---
SPOKE WITH DIALYSIS NURSE OVIDIO AND SHE STATED THAT PATIENT WILL GET DIALYSIS FIRST THING IN THE MORNING AND WAS INFORMED THAT PATIENT HAD CT WITH CONTRAST AND SHE STATED HE JUST NEEDS DIALYSIS WITHIN 24 HOURS OF CONTRAST. WILL NOTIFY PATIENT AND FAMILY.
--- NOTE | 2021-11-19 19:10 | NUR ---
Opening notes Received report from endorsing morning shift RN for continuity of care. Patient is lying in bed with his at the bedside in no sign of distress. Patient's vital signs blood pressure 111/54, heart rate 124, respirations 14, and SPO2 93% on room air. Plascencia catheter is in place draining to gravity. Patient is a dialysis patient with an access on the R IJ Steven cath/pigtail port. Bed is locked and in lowest position, call light button is within reach, fall and safety precautions is in place.
[2021-11-19] MEDS ORDERED: MIDODRINE HCL 5 MG TABLET (PROAMATINE) ONE (21:34)
[2021-11-19] MEDS: MIDODRINE HCL 5 MG TABLET (PROAMATINE) PO SCH (21:38)
--- NOTE | 2021-11-19 21:40 | NUR ---
Dialysis marketing community liaison Moon started dialysis at 2140 and finished at 0050 taking out 1400. Cookie CHATTERJEE gave the heparin 5,000 units x2 during dialysis.
[2021-11-19] MEDS ORDERED: HEPARIN SODIUM,PORCINE 5,000 UNITS/ML VIAL ONE (22:41)
[2021-11-19] MEDS ORDERED: HEPARIN SODIUM, PORCINE 10,000 UNITS/ 10 ML VIAL MC ONE ×2 (22:45)
[2021-11-20] VITALS (25 sets, daily range): BP systolic 93–133
[2021-11-20] MEDS: MORPHINE 2 MG/ML INJ. SYRINGE IVP PRN (02:41)
[2021-11-20] MEDS: NACL 0.9% 1,000 ML IV SCH ×2 (03:42→22:25)
[2021-11-20] MEDS: methylPREDNISolone SOD SUCC/PF 62.5 MG/ML VIAL IVP SCH ×2 (06:18→17:13)
[2021-11-20] MEDS: INSULIN LISPRO SLIDING SCALE 100 UNITS/ML VIAL (humaLOG) SUBCUT PRN ×3 (06:31→17:29)
[2021-11-20 06:59] LABS: BASOPHILS % (AUTO) 0.2 % (0.0-2.0); HEMOGLOBIN 10.8 g/dL (14.0-18.0); LYMPHOCYTES # (AUTO) 0.5 K/uL (1.0-5.5); LYMPHOCYTES % (AUTO) 4.3 % (20.5-51.5); MEAN CORPUSCULAR HEMOGLOBIN 28 pg (27-31); MEAN CORPUSCULAR HGB CONC 34 % (32-36); MEAN CORPUSCULAR VOLUME 82 fL (79.0-98.0); MONOCYTES # (AUTO) 0.6 K/uL (0.0-1.0); MONOCYTES % (AUTO) 5.6 % (1.7-9.3); NEUTROPHILS # (AUTO) 9.8 K/uL (1.8-7.7); NEUTROPHILS % (AUTO) 89.9 % (40.0-70.0); PLATELET COUNT (AUTO) 75 K/uL (130-430); RED CELL DISTRIBUTION WIDTH 17.4 % (9.0-15.0); WHITE BLOOD COUNT (AUTO) 10.9 K/uL (4.8-10.8)
--- NOTE | 2021-11-20 07:30 | NUR ---
PATIENT RECEIVED DIALYSIS DURING THE NIGHT AND TOOK OF 1400ML, NO S/S OF DISTRESS, PATIENT IS A/OX3, REDDY DRAINING TO GRAVITY WITH 50ML OUTPUT DURING THE NIGHT, NOTIFIED DR ZAMORANO OF PATIENT RECEIVING 125ML/HR NORMAL SALINE, DR ZAMORANO ORDERED TO DECREASE RATE TO 30ML/HR, NOTIFIED OF ELEVATED BLOOD GLUCOSE LEVELS ON THE SLIDING SCALE AND DR ZAMORANO ORDERED LANTUS 10U DAILY TO START THIS MORNING, SIGNIFICANT OTHER AT BEDSIDE, RIGHT IJ YESENIA CATH/PIGTAIL INTACT PATENT, LEVOPHED DRIP ON HOLD AT THIS TIME FOR MAP >65, NO REPORT OF PAIN, GENERALIZED EDEMA, JAUNDICED, WILL CONTINUE TO MONITOR.
[2021-11-20 08:08] LABS: ALANINE AMINOTRANSFERASE 148 U/L (12-78); ALBUMIN 1.7 g/dL (3.4-4.8); ANION GAP 16 (5-15); ASPARTATE AMINOTRANSFERASE 50 U/L (10-37); CHLORIDE 98 mmol/L (98-107); CREATININE 4.12 mg/dL (0.55-1.30); GLUCOSE 323 mg/dL (70-99); POTASSIUM 3.9 mmol/L (3.5-5.1); SODIUM SERUM 133 mmol/L (136-145); TOTAL BILIRUBIN 9.8 mg/dL (0.0-1.0); UREA NITROGEN, BLOOD 73 mg/dL (8-21)
[2021-11-20] MEDS ORDERED: FUROSEMIDE 40 MG/4 ML VIAL IVP ONE (08:15)
[2021-11-20 08:25] LABS: INR 1.9 (0.80-1.20); PROTHROMBIN TIME 18.9 SECS (9.5-12.5)
[2021-11-20 08:45] LABS: CALCIUM 6.8 mg/dL (8.4-11.0)
[2021-11-20] MEDS: METOPROLOL SUCCINATE 25 MG TAB.SR.24H (TOPROL XL) PO SCH ×2 (08:50→20:34)
[2021-11-20] MEDS: MEROPENEM 500 MG IVPB PREMIX 50 ML IV SCH ×2 (08:50→20:33)
[2021-11-20] MEDS: MIDODRINE HCL 5 MG TABLET (PROAMATINE) PO SCH ×3 (08:50→20:33)
[2021-11-20] MEDS: INSULIN GLARGINE 100 UNITS/ML 10 ML VIAL SUBCUT SCH (08:53)
--- NOTE | 2021-11-20 09:00 | NUR ---
DR LARIOS ROUNDED ON PATIENT, PROVIDED UPDATE ON PATIENT GETTING DIALYSIS LAST NIGHT WITH 1400ML OUT, LEVOPHED ON HOLD, MIDODRINE BEING GIVEN BID AND METOPROLOL, AFIB UP TO 150BPM BUT NO CHANGES IN ORDERS.
[2021-11-20] MEDS ORDERED: PHYTONADIONE Non-Formulary 5 MG TABLET PO ONE (09:15)
[2021-11-20] MEDS ORDERED: CALCIUM GLUCONATE 2 GM in NS 100 ML IV ONE (09:15)
[2021-11-20] MEDS ORDERED: PHYTONADIONE (Vitamin K) Oral Solution PO ONE (10:45)
--- NOTE | 2021-11-20 12:00 | NUR ---
SIGNIFICANT OTHER AT BEDSIDE, EDUCATED ON PLAN OF CARE FOR THE DAY AND REINFORCED EDUCATION FROM DR ZAMORANO, DR LARIOS, AND DR DE LOS SANTOS. ANSWERED ALL QUESTIONS APPROPRIATE, VOICED UNDERSTANDING.
[2021-11-20 12:06] LABS: LIVER-KIDNEY MICROSOMAL AB 0.9 Units (0.0-20.0)
[2021-11-20] MEDS: FLUCONAZOLE 100 mg/ NS 50 ML IV SCH (12:18)
[2021-11-20] MEDS ORDERED: methylPREDNISolone SOD SUCC/PF 62.5 MG/ML VIAL IVP ONE (13:00)
--- NOTE | 2021-11-20 14:00 | NUR ---
DAUGHTER AT BEDSIDE REINFORCED EDUCATION, ANSWERED QUESTIONS APPROPRIATE, PATIENT A/OX3, STATES HE IS UNCOMFORTABLE IN BED SO PROVIDED PATIENT WITH Q2 TURNING AND REPOSITIONING.
[2021-11-20 16:06] LABS: HEPARIN INDUCED PLT AB 0.259 OD (0.000-0.400)
--- NOTE | 2021-11-20 19:25 | NUR ---
PM SHIFT ASSESSMENT Patient is awake in bed. Family at bedside. IVF infusing, no signs of infiltration noted. Plascencia catheter in place and draining to gravity. Safety precautions in place, call light within reach. Will continue to monitor.
--- NOTE | 2021-11-20 19:27 | NUR ---
ENDORSED CONTINUATION OF CARE TO FRIT MIXER, FAMILY AT BEDSIDE.
[2021-11-21] VITALS (23 sets, daily range): BP systolic 94–134
[2021-11-21] MEDS: methylPREDNISolone SOD SUCC/PF 62.5 MG/ML VIAL IVP SCH ×4 (00:29→19:11)
[2021-11-21 04:19] LABS: HEMATOCRIT 33.3 % (36-54)
[2021-11-21 04:25] LABS: HEMOGLOBIN 10.8 g/dL (14.0-18.0); MEAN CORPUSCULAR HEMOGLOBIN 27 pg (27-31); MEAN CORPUSCULAR HGB CONC 32 % (32-36); MEAN CORPUSCULAR VOLUME 84 fL (79.0-98.0); PLATELET COUNT (AUTO) 132 K/uL (130-430); RED BLOOD CELL COUNT(AUTO) 3.97 MIL/uL (4.2-6.2); RED CELL DISTRIBUTION WIDTH 18.5 % (9.0-15.0); WHITE BLOOD COUNT (AUTO) 15.3 K/uL (4.8-10.8)
[2021-11-21 04:33] LABS: INR 1.5 (0.80-1.20); PROTHROMBIN TIME 15.5 SECS (9.5-12.5)
[2021-11-21 04:35] LABS: ALANINE AMINOTRANSFERASE 122 U/L (12-78); ALBUMIN 1.8 g/dL (3.4-4.8); ANION GAP 16 (5-15); ASPARTATE AMINOTRANSFERASE 48 U/L (10-37); CALCIUM 7.8 mg/dL (8.4-11.0); CHLORIDE 99 mmol/L (98-107); GLUCOSE 301 mg/dL (70-99); PHOSPHORUS 7.7 mg/dL (2.7-4.5); POTASSIUM 4.6 mmol/L (3.5-5.1); SODIUM SERUM 134 mmol/L (136-145); TOTAL BILIRUBIN 9.2 mg/dL (0.0-1.0); UREA NITROGEN, BLOOD 88 mg/dL (8-21)
[2021-11-21 05:04] LABS: BAND % (MANUAL) 1 % (0-6); LYMPHOCYTES % (MANUAL) 13 % (20-46)
[2021-11-21] MEDS: INSULIN LISPRO SLIDING SCALE 100 UNITS/ML VIAL (humaLOG) SUBCUT PRN ×3 (06:41→19:21)
--- NOTE | 2021-11-21 07:23 | NUR ---
ENDORSEMENT Patient care endorsed to dayshift RN using nursing SBAR.
--- NOTE | 2021-11-21 07:25 | NUR ---
OPENING NOTE: (SHENA FINE) REPORT RC'VD FROM OUTGOING NOC RN, ALL CARES ASSUMED.
--- NOTE | 2021-11-21 08:02 | NUR ---
DOMINGA (SPOUSE) AT BEDSIDE, INTRODUCTION MADE AND ALL QUESTIONS ANSWERED.
[2021-11-21] MEDS: MIDODRINE HCL 5 MG TABLET (PROAMATINE) PO SCH ×3 (09:13→22:14)
[2021-11-21] MEDS: MEROPENEM 500 MG IVPB PREMIX 50 ML IV SCH (09:13)
[2021-11-21] MEDS: METOPROLOL SUCCINATE 25 MG TAB.SR.24H (TOPROL XL) PO SCH ×2 (09:14→21:58)
[2021-11-21] MEDS: INSULIN GLARGINE 100 UNITS/ML 10 ML VIAL SUBCUT SCH (09:16)
[2021-11-21] MEDS: FLUCONAZOLE 100 mg/ NS 50 ML IV SCH (11:26)
--- NOTE | 2021-11-21 11:39 | NUR ---
DR. GRAY MAKING ROUNDS, VERBAL BEDSIDE REPORT GIVEN. ALL QUESTIONS ANSWERED AT THIS TIME. MD SPEAKING WITH FAMILY TO DISCUSS PLAN OF CARE.
--- NOTE | 2021-11-21 11:59 | NUR ---
SPOKE WITH RADIOLOGY DEPT, PATIENT IS UNABLE TO GO FOR CT WITH BIOPSY TODAY R/T INR LEVEL OF 1.5, PER RADIOLOGY INR MUST BE <1.2. CHARGE AWARE AND MD NOTIFIED.
--- NOTE | 2021-11-21 13:11 | NUR ---
DR. YUEN MAKING ROUNDS, VERBAL BEDSIDE REPORT GIVEN.
[2021-11-21] MEDS: PROCHLORPERAZINE EDISYLATE 10 MG/2 ML VIAL IVP PRN ×2 (13:36→21:59)
--- NOTE | 2021-11-21 13:47 | NUR ---
PRN COMPAZINE GIVEN FOR HICCUPS PER ORDER, PATIENT TOLERATED WELL WITH NO ADVERSE REACTION.
--- NOTE | 2021-11-21 14:53 | NUR ---
REPORT GIVEN TO SHENA NOLEN ALL CARES ENDORSED.
[2021-11-21] MEDS ORDERED: PHYTONADIONE Non-Formulary 5 MG TABLET PO ONE (15:30)
--- NOTE | 2021-11-21 15:39 | NUR ---
Nutrition F/U Admitting Diagnosis Sepsis, acute embolism and thrombosis of unspecified vein Medical History Comment: Multiple MIs w/ cardiac stent placement, CABG, DM, HTN, BPH, CKD stage III, kidney stones w/ lithotripsy, gout. Pt also found w/ CHF, metabolic encephalopathy, severe malnutrition, elevated troponins, and CAD. SARS-CoV-2 Ag (Rapid) Negative 11/14, Hep C pending 11/[address] attended ICU rounds; per pts RN, pt is not eating much, drank approximately 1/3 Nepro shake and applesauce this AM, he prefers fruits, no evidence of chewing or swallowing difficulty; pt to have MRCP w/ biopsy. Per physician notes, pt w/ hepatic mass r/o pyogenic liver abscess vs Cholangio/pancreatic CA; HD scheduled for today; plan for MRCP. Per EMR review, Eric score 14, skin jaundiced, no PIs; 2+ pitting edema to B arms and B legs, Generalized non-pitting edema; Last BM recorded 11/15 x2; PO intake 38% x 4 meal records, 0% supplement x1 11/21. Current Diet Order/Nutrition Support Renal, CCHO, Nepro BID x 3 days Education Provided Not Indicated Pertinent Medications MgSO4, K-Dur, Colace, Solu-Mederol, Retacrit Pertinent Labs WBC 15.3 H, H/H 10.8 L/33.3 L, Na 134 L, BUN 88 H, Cr 5.2 H, BG 301 H, POC BG 298 H, Ca 7.8 H, P 7.7 H, Mg 2.3 H, Alb 1.8 L Height (Feet) 5 feet Height (Inches) 6.00 inches Weight (Pounds) 201 pounds 11/18 200#/90.7 kg 1# wt loss Patient Weight 91.172 kg Body Mass Index 32.44 kg/m2 %IBW 142 [place]/Adjusted Body Weight 142#/64.5 kg; adj. BW: 156#/71.3 kg Recent Weight Change No - unable to verify Weight Status Obese Usual Diet At Home unable to verify (*ongoing) Estimated Energy Expenditure (kcals/day) 2159-1790 kcals/day (30-35 kcals/kg Adj. IBW d/t obesity and sepsis) (*NEW) Estimated Protein Required (g/day) 85-107 g/day (1.2-1.5 g/kg Adj. IBW d/t obesity, sepsis and CKD/HD) (*ongoing) Estimated Fluid Required (l/day) Per cook mess d/t CKD and CHF Problem/Etiology/Signs/Symptoms Altered nutrition-related labs R/T renal dysfunction AEB abnormal Na, BUN, and Cr lab values. (*ongoing) Increased nutritional needs R/T metabolic demands AEB estimated nutritional requirements for sepsis. (*ongoing) Expected Outcomes/Goals Monitor tolerance of intake w/ goal of pt meeting greater than 80% of estimated needs, labs trending WNL, normal GI function, skin integrity, wt maintenance. Dietitian Recommendations * Change diet to Renal, CCHO w/ Nepro TID * ONS provides 1260 kcals/day and 57 g protein/day * Encourage PO intake Follow Up High Risk: F/U in 2-3 days
--- NOTE | 2021-11-21 15:39 | NUR ---
Dietitian Recommendations * Change diet to Renal, CCHO w/ Nepro TID * ONS provides 1260 kcals/day and 57 g protein/day * Encourage PO intake Please refer to Nutrition F/U for details.
[2021-11-21] MEDS ORDERED: PHYTONADIONE (Vitamin K) Oral Solution PO ONE (16:00)
[2021-11-21] MEDS ORDERED: PHYTONADIONE 10 MG in NS 50 ML IV ONE (16:45)
[2021-11-21] MEDS: EPOETIN ALFA-EPBX 4,000 UNITS/ML VIAL SUBCUT SCH (17:00)
[2021-11-21] MEDS ORDERED: HEPARIN SODIUM, PORCINE 10,000 UNITS/ 10 ML VIAL ONE (18:04)
[2021-11-21] MEDS ORDERED: HEPARIN SODIUM,PORCINE 5,000 UNITS/ML VIAL MC ONE (18:15)
[2021-11-21] MEDS ORDERED: HEPARIN SODIUM,PORCINE 5,000 UNITS/ML VIAL ONE (18:19)
[2021-11-21] MEDS: MORPHINE 2 MG/ML INJ. SYRINGE IVP PRN (19:01)
[2021-11-22] VITALS (21 sets, daily range): BP systolic 102–153
[2021-11-22] MEDS: NACL 0.9% 1,000 ML IV SCH (05:01)
[2021-11-22] MEDS: methylPREDNISolone SOD SUCC/PF 62.5 MG/ML VIAL IVP SCH ×3 (05:02→21:47)
[2021-11-22 06:36] LABS: ALANINE AMINOTRANSFERASE 91 U/L (12-78); ALBUMIN 1.7 g/dL (3.4-4.8); ANION GAP 15 (5-15); ASPARTATE AMINOTRANSFERASE 42 U/L (10-37); CHLORIDE 101 mmol/L (98-107); CREATININE 5.44 mg/dL (0.55-1.30); GLUCOSE 260 mg/dL (70-99); PHOSPHORUS 7.9 mg/dL (2.7-4.5); POTASSIUM 4.7 mmol/L (3.5-5.1); SODIUM SERUM 135 mmol/L (136-145); TOTAL BILIRUBIN 8.3 mg/dL (0.0-1.0); UREA NITROGEN, BLOOD 88 mg/dL (8-21)
[2021-11-22 07:06] LABS: FOLATE (FOLIC ACID) 5.7 ng/mL (>3.0)
[2021-11-22] MEDS: INSULIN LISPRO SLIDING SCALE 100 UNITS/ML VIAL (humaLOG) SUBCUT PRN ×3 (07:09→16:42)
--- NOTE | 2021-11-22 07:20 | NUR ---
RECEIVED REPORT FROM SHENA ARRIETA. PT IS RESTING COMFORTABLY IN BED. BED RAILS UP, BRAKES ON. FAMILY AT BEDSIDE. PT IS CONFUSED, OPENS EYES WHEN SPOKEN TO BUT DOES NOT RESPOND. HEART RATE IN THE 120'S. BP IS STABLE. NO PAIN AT THIS TIME. NO DRIPS. [facility] YESENIA CATH IN PLACE FOR DIALYSIS AND IV ABX. WILL CONTINUE TO MONITOR.
[2021-11-22 07:30] LABS: INR 1.2 (0.80-1.20); PROTHROMBIN TIME 12.8 SECS (9.5-12.5)
--- NOTE | 2021-11-22 07:30 | NUR ---
DR CONLEY AT BEDSIDE
[2021-11-22 08:16] LABS: BASOPHILS % (AUTO) 0.2 % (0.0-2.0); HEMATOCRIT 31.4 % (36-54); HEMOGLOBIN 10.3 g/dL (14.0-18.0); LYMPHOCYTES # (AUTO) 2.6 K/uL (1.0-5.5); LYMPHOCYTES % (AUTO) 14.5 % (20.5-51.5); MEAN CORPUSCULAR HEMOGLOBIN 27 pg (27-31); MEAN CORPUSCULAR HGB CONC 33 % (32-36); MEAN CORPUSCULAR VOLUME 83 fL (79.0-98.0); MONOCYTES # (AUTO) 0.5 K/uL (0.0-1.0); MONOCYTES % (AUTO) 2.8 % (1.7-9.3); NEUTROPHILS # (AUTO) 15.1 K/uL (1.8-7.7); PLATELET COUNT (AUTO) 127 K/uL (130-430); RED BLOOD CELL COUNT(AUTO) 3.77 MIL/uL (4.2-6.2); RED CELL DISTRIBUTION WIDTH 18.3 % (9.0-15.0); WHITE BLOOD COUNT (AUTO) 18.3 K/uL (4.8-10.8)
[2021-11-22 08:31] LABS: C-REACTIVE PROTEIN QUANT 2.6 mg/dL (0-0.5)
[2021-11-22] MEDS: INSULIN GLARGINE 100 UNITS/ML 10 ML VIAL SUBCUT SCH (08:44)
[2021-11-22] MEDS: PROCHLORPERAZINE EDISYLATE 10 MG/2 ML VIAL IVP PRN (08:45)
[2021-11-22] MEDS ORDERED: LIDOCAINE 1%, 20 ML MDV 20 ML ONE (08:55)
[2021-11-22] MEDS: MIDODRINE HCL 5 MG TABLET (PROAMATINE) PO SCH ×3 (09:00→21:00)
[2021-11-22] MEDS: METOPROLOL SUCCINATE 25 MG TAB.SR.24H (TOPROL XL) PO SCH (09:00)
--- NOTE | 2021-11-22 09:00 | NUR ---
HIGH ALERT NOTE: Called Dr. DE LA CRUZ back at identified within the medical roster to verify physician authenticity. FOR ONE TIME VERSED ORDER FOR PROCEDURE
[2021-11-22] MEDS ORDERED: MIDAZOLAM HCL 5 MG/5 ML VIAL ONE (09:15)
[2021-11-22] MEDS: MORPHINE 2 MG/ML INJ. SYRINGE IVP PRN (11:20)
[2021-11-22] MEDS: FLUCONAZOLE 100 mg/ NS 50 ML IV SCH (12:00)
[2021-11-22 12:53] LABS: ERYTHROCYTE SEDIMENTATION RATE 33 MM/HR (0-15)
--- NOTE | 2021-11-22 13:48 | NUR ---
PT TO RADIOLOGY, ARRIVED 0955, BP 138/75 HR 113,O2 SAT 100%, TEMP 97.8, O2 2L/BP STABLE THROUGHOUT PROCEDURE, PT RETURNED TO ICU IN ZERO DISTRESS AFTER RECIVING 5MGS OF VERSED, VS STABLE, BP 110/77, HR 123, T 97.7, O2 SAT 100% PT BACK TO THE ROOM AT 1100//AWAIT NOTES FROM DR DE LA CRUZ//MW
[2021-11-22] MEDS: metroNIDAZOLE 250 mg/NS 50 ML IV SCH ×2 (14:23→21:53)
[2021-11-22 15:37] LABS: NEUTROPHILS % (AUTO) 82.5 % (40.0-70.0)
--- NOTE | 2021-11-22 16:28 | NUR ---
CALLUM HAHN ASSIGNED TO THIS PATIENT WITH PRECEPTEE JACE//PT APPEARS IN ZERO DISTRESS//PREPARING FOR BIOPSY THIS MORNING//KT
--- NOTE | 2021-11-22 16:30 | NUR ---
SPOKE TO DR LARIOS REGARDING PT RAPID AFIB, ORDERS TAKEN/PT IS IN ZERO DISTRESS
--- NOTE | 2021-11-22 16:38 | NUR ---
PT NOW HAVING BS CHECKED BEFORE EATING DINNER/VS STABLE PT PT COOPERATIVE, FOLLLOWS COMMANDS, POST BILE DRAIN PLACEMENT//WBC HIGHER BUT PT IS AFEBRILE//AND IN ZERO DISTRESS DENIES SOB/MW
--- NOTE | 2021-11-22 16:51 | NUR ---
DR CONLEY AT BEDSIDE. WILL GET CONSENT SIGNED FOR ERCP SCHEDULED TMRW AT 0700 IF HEART RATE IS UNDER CONTROL.
--- NOTE | 2021-11-22 18:48 | NUR ---
BILIARY DRAINAGE BAG 130ML'S REMOVED. THICK, DARK BROWN WITH A MUCOUS CONSISTENCY.
--- NOTE | 2021-11-22 19:30 | NUR ---
Jayy Abdi RN, report received from day RN. Assuming care now.
[2021-11-22] MEDS: DILTIAZEM HCL 30 MG TABLET PO SCH (21:47)
[2021-11-22] MEDS: METOPROLOL SUCCINATE 50 MG TAB.SR.24H (TOPROL XL) PO SCH (21:48)
[2021-11-23] VITALS (23 sets, daily range): BP systolic 109–144
[2021-11-23] MEDS: MORPHINE 2 MG/ML INJ. SYRINGE IVP PRN ×2 (02:02→21:45)
[2021-11-23] MEDS: NACL 0.9% 1,000 ML IV SCH ×2 (05:14→22:54)
[2021-11-23] MEDS ORDERED: INDOMETHACIN 50 MG SUPP.RECT RC ONE (06:30)
[2021-11-23 06:32] LABS: BASOPHILS % (AUTO) 0.1 % (0.0-2.0); HEMATOCRIT 31.4 % (36-54); HEMOGLOBIN 10.2 g/dL (14.0-18.0); LYMPHOCYTES # (AUTO) 2.6 K/uL (1.0-5.5); LYMPHOCYTES % (AUTO) 13.8 % (20.5-51.5); MEAN CORPUSCULAR HEMOGLOBIN 27 pg (27-31); MEAN CORPUSCULAR HGB CONC 32 % (32-36); MEAN CORPUSCULAR VOLUME 84 fL (79.0-98.0); MONOCYTES # (AUTO) 0.4 K/uL (0.0-1.0); MONOCYTES % (AUTO) 1.9 % (1.7-9.3); NEUTROPHILS # (AUTO) 15.6 K/uL (1.8-7.7); NEUTROPHILS % (AUTO) 84.2 % (40.0-70.0); PLATELET COUNT (AUTO) 144 K/uL (130-430); RED BLOOD CELL COUNT(AUTO) 3.75 MIL/uL (4.2-6.2); RED CELL DISTRIBUTION WIDTH 18.3 % (9.0-15.0); WHITE BLOOD COUNT (AUTO) 18.6 K/uL (4.8-10.8)
[2021-11-23] MEDS: metroNIDAZOLE 250 mg/NS 50 ML IV SCH ×3 (06:39→21:26)
[2021-11-23] MEDS: INSULIN LISPRO SLIDING SCALE 100 UNITS/ML VIAL (humaLOG) SUBCUT PRN ×3 (06:40→21:27)
[2021-11-23 07:09] LABS: INR 1.2 (0.80-1.20); PROTHROMBIN TIME 12.1 SECS (9.5-12.5)
[2021-11-23 07:12] LABS: ALANINE AMINOTRANSFERASE 79 U/L (12-78); ALBUMIN 1.8 g/dL (3.4-4.8); ANION GAP 17 (5-15); ASPARTATE AMINOTRANSFERASE 47 U/L (10-37); CALCIUM 8.1 mg/dL (8.4-11.0); CHLORIDE 99 mmol/L (98-107); CREATININE 6.42 mg/dL (0.55-1.30); GLUCOSE 345 mg/dL (70-99); PHOSPHORUS 10.3 mg/dL (2.7-4.5); POTASSIUM 5.3 mmol/L (3.5-5.1); SODIUM SERUM 135 mmol/L (136-145)
[2021-11-23] MEDS ORDERED: METOPROLOL TARTRATE 5 MG/5 ML AMPUL IVP PRN (07:15)
--- NOTE | 2021-11-23 07:15 | NUR ---
DR LARIOS AND DR CONLEY AT BEDSIDE WITH ANESTHESIOLOGIST DR PANDA. DISCUSSED PT STATUS INCLUDING LABS AND HEART RATE. ALPA REECE. WILL CARRY OUT ORDERS. Addendum: 11/23/21 at 0808 by Iwona Tracy RN DECIDED TO POSTPONE SURGERY UNTIL SUNDAY BASED UPON LAB RESULTS AND PT STATUS
[2021-11-23] MEDS ORDERED: METOPROLOL TARTRATE 5 MG/5 ML AMPUL ONE (07:20)
[2021-11-23 07:23] LABS: UREA NITROGEN, BLOOD 113 mg/dL (8-21)
[2021-11-23] MEDS ORDERED: METOPROLOL TARTRATE 5 MG/5 ML AMPUL IVP ONE (07:30)
--- NOTE | 2021-11-23 07:38 | NUR ---
ALPA RETURNED PAGE INFORMED OF INCREASING BUN. YESTERDAY 88 AND INCREASED TO 113 TODAY. PT HAS ORDERS FOR DIALYSIS TODAY. ALPA WILL PUT IN ORDERS FOR A REPEAT DIALYSIS TMRW.
[2021-11-23 07:39] LABS: C-REACTIVE PROTEIN QUANT 1.7 mg/dL (0-0.5)
--- NOTE | 2021-11-23 08:00 | NUR ---
OPENING NOTE RECEIVED BEDSIDE REPORT FROM BERNY. PT IS FORGETFUL AND CONFUSED. HEART RATE 130'S IN AFIB. BP STABLE. LUNG SOUNDS ARE DIMINISHED. HOB ELEVATED 45 DEGREES. PT RESTING COMFORTABLY IN BED WITH NO COMPLAINTS AT THIS TIME. 3 BED RAILS UP, BRAKES ON AND IN LOWEST POSITION. FAMILY AT BEDSIDE. WILL CONTINUE TO MONITOR.
[2021-11-23] MEDS: MIDODRINE HCL 5 MG TABLET (PROAMATINE) PO SCH ×3 (08:13→21:00)
[2021-11-23] MEDS: METOPROLOL SUCCINATE 50 MG TAB.SR.24H (TOPROL XL) PO SCH ×2 (08:25→20:59)
[2021-11-23] MEDS: methylPREDNISolone SOD SUCC/PF 62.5 MG/ML VIAL IVP SCH ×2 (08:26→20:57)
[2021-11-23] MEDS: DILTIAZEM HCL 30 MG TABLET PO SCH ×3 (08:26→20:58)
[2021-11-23] MEDS: INSULIN GLARGINE 100 UNITS/ML 10 ML VIAL SUBCUT SCH ×2 (08:28→22:21)
[2021-11-23 08:36] LABS: ERYTHROCYTE SEDIMENTATION RATE 37 MM/HR (0-15)
--- NOTE | 2021-11-23 09:20 | NUR ---
DIALYSIS AT BEDSIDE
--- NOTE | 2021-11-23 10:20 | NUR ---
HIGH ALERT NOTE:IVONNE LARIOS AT BEDSIDE. ORDERED 5MG ONE TIME DOSE LOPRESSOR IVP.
--- NOTE | 2021-11-23 10:22 | NUR ---
HIGH ALERT NOTE: INSULIN NPH Called Dr. TREVIZO back ON HIS CELL PHONE, NUMBER identified within the medical roster to verify physician authenticity. ADVISED BLOOD SUGARS IN THE 340'S. INSULIN NPH 20 UNITS ONE TIME DOSE ORDERED.
--- NOTE | 2021-11-23 10:23 | NUR ---
Dr. Mcclellan-Sayed aware of consult
[2021-11-23] MEDS ORDERED: INSULIN NPH 100 UNITS/ML 10 ML VIAL SUBCUT ONE (10:30)
--- NOTE | 2021-11-23 10:36 | NUR ---
HULL DRAFTER ADVISED YESENIA MORE NOT WORKING TOO WELL AND IT MAY BE INADEQUATE TO CONTINUE. DIALYSIS NURSE TO NOTIFY ALPA.
[2021-11-23] MEDS ORDERED: ALTEPLASE 100 MG VIAL IVP ONE (11:15)
--- NOTE | 2021-11-23 11:20 | NUR ---
HIGH ALERT NOTE: ACTIVASE Called Dr. YUEN back at identified within the medical roster to verify physician authenticity. CONFIRMED ONE TIME TELEPHONE ORDER: ACTIVASE 2MG IVP TO EACH DIALYSIS PORT AFTER HEMODIALYSIS. NEED TOTAL 4MG TO BE ADMINISTERED BY THE CLUB ATTENDANT.
[2021-11-23] MEDS ORDERED: ALTEPLASE 2 MG VIAL MC ONE (11:30)
[2021-11-23] MEDS: FLUCONAZOLE 100 mg/ NS 50 ML IV SCH (12:16)
--- NOTE | 2021-11-23 12:43 | NUR ---
LINE AND FRAME POLER KIM COMPLETED 2 HOURS AND 6 MINS OF DIALYSIS. TOOK OFF ONE LITER. DIALYSIS WILL BE BACK IN THE MORNING FOR ANOTHER SESSION.
--- NOTE | 2021-11-23 13:51 | NUR ---
DIET PT REFUSING TO EAT BREAKFAST OR LUNCH. FAMILY AT BEDSIDE ENCOURAGING PT.
[2021-11-23] MEDS: EPOETIN ALFA-EPBX 4,000 UNITS/ML VIAL SUBCUT SCH (17:34)
--- NOTE | 2021-11-23 19:05 | NUR ---
Opening notes Received report from endorsing morning shift RN for continuity of care. Patient is lying in bed in no signs of distress with IVF NS @5mL/hr in the RIJ. Patient's vital signs blood pressure 117/54, heart rate 101, respirations 12, and SPO2 91% on room air. Plascencia catheter and biliary duct drainage is draining to gravity. Bed is locked and in lowest position, call light button within reach, fall and safety precautions is in place.
--- NOTE | 2021-11-23 21:55 | NUR ---
MD Dr. Askew is at the bedside assessing the patient; verbal report given. New orders received and was put in by .
[2021-11-24] VITALS (24 sets, daily range): BP systolic 102–144
[2021-11-24] MEDS: PROCHLORPERAZINE EDISYLATE 10 MG/2 ML VIAL IVP PRN (03:55)
--- NOTE | 2021-11-24 05:45 | NUR ---
MD Dr. Foreman is in the unit rounding on patient. Gave verbal report, no new order given.
[2021-11-24] MEDS: metroNIDAZOLE 250 mg/NS 50 ML IV SCH ×3 (06:28→21:42)
[2021-11-24] MEDS: INSULIN LISPRO SLIDING SCALE 100 UNITS/ML VIAL (humaLOG) SUBCUT PRN ×3 (06:30→20:49)
[2021-11-24 07:07] LABS: BASOPHILS % (AUTO) 0.1 % (0.0-2.0); HEMATOCRIT 31.7 % (36-54); HEMOGLOBIN 10.4 g/dL (14.0-18.0); LYMPHOCYTES # (AUTO) 5.8 K/uL (1.0-5.5); LYMPHOCYTES % (AUTO) 27.7 % (20.5-51.5); MEAN CORPUSCULAR HEMOGLOBIN 28 pg (27-31); MEAN CORPUSCULAR HGB CONC 33 % (32-36); MEAN CORPUSCULAR VOLUME 84 fL (79.0-98.0); MONOCYTES # (AUTO) 0.4 K/uL (0.0-1.0); NEUTROPHILS # (AUTO) 14.7 K/uL (1.8-7.7); NEUTROPHILS % (AUTO) 70.2 % (40.0-70.0); PLATELET COUNT (AUTO) 135 K/uL (130-430); RED BLOOD CELL COUNT(AUTO) 3.77 MIL/uL (4.2-6.2); RED CELL DISTRIBUTION WIDTH 18.4 % (9.0-15.0)
--- NOTE | 2021-11-24 07:30 | NUR ---
RECEIVED BEDSIDE REPORT FROM ONEYDA. PT IS FORGETFUL. HEART RATE LOW 100'S IN AFIB. BP STABLE. LUNG SOUNDS ARE DIMINISHED. HOB ELEVATED 45 DEGREES. PT RESTING COMFORTABLY IN BED WITH NO COMPLAINTS AT THIS TIME. 3 BED RAILS UP, BRAKES ON AND IN LOWEST POSITION. FAMILY AT BEDSIDE. WILL CONTINUE TO MONITOR. PLAN FOR THE DAY IS TO KEEP SUGARS AND AFIB UNDER CONTROL SO PT CAN GO TO SURGERY FOR AN ERCP TOMORROW MORNING AT 0700.
[2021-11-24] MEDS: DILTIAZEM HCL 30 MG TABLET PO SCH ×3 (08:26→20:47)
[2021-11-24] MEDS: methylPREDNISolone SOD SUCC/PF 62.5 MG/ML VIAL IVP SCH (08:26)
[2021-11-24] MEDS: METOPROLOL SUCCINATE 50 MG TAB.SR.24H (TOPROL XL) PO SCH ×2 (08:27→20:48)
[2021-11-24] MEDS: INSULIN GLARGINE 100 UNITS/ML 10 ML VIAL SUBCUT SCH ×2 (08:28→20:49)
--- NOTE | 2021-11-24 08:30 | NUR ---
DR CONLEY AT BEDSIDE.
[2021-11-24 08:48] LABS: ALANINE AMINOTRANSFERASE 68 U/L (12-78); ALBUMIN 1.8 g/dL (3.4-4.8); ANION GAP 18 (5-15); ASPARTATE AMINOTRANSFERASE 51 U/L (10-37); CALCIUM 7.1 mg/dL (8.4-11.0); CHLORIDE 96 mmol/L (98-107); CREATININE 6.13 mg/dL (0.55-1.30); GLUCOSE 296 mg/dL (70-99); PHOSPHORUS 9.7 mg/dL (2.7-4.5); POTASSIUM 4.9 mmol/L (3.5-5.1); SODIUM SERUM 134 mmol/L (136-145)
[2021-11-24 08:51] LABS: UREA NITROGEN, BLOOD 106 mg/dL (8-21)
[2021-11-24] MEDS: MIDODRINE HCL 5 MG TABLET (PROAMATINE) PO SCH ×3 (09:00→20:46)
--- NOTE | 2021-11-24 09:00 | NUR ---
DIALYSIS NURSE AT BEDSIDE.
--- NOTE | 2021-11-24 09:57 | NUR ---
DR GRAY AT BEDSIDE
--- NOTE | 2021-11-24 10:05 | NUR ---
ADVISED DR GRAY THAT PT HAS NOT BEEN EATING. PER DR GRAY PT WILL BE ON IV FLUIDS PENDING SURGICAL INTERVENTION.
[2021-11-24 10:08] LABS: C-REACTIVE PROTEIN QUANT 1.8 mg/dL (0-0.5)
--- NOTE | 2021-11-24 10:30 | NUR ---
DIALYSIS COULD NOT BE COMPLETED. 1 HR 20 MINS AND 630 MLS OUT.
[2021-11-24] MEDS ORDERED: D5/0.45 NS 1,000 ML IV SCH (10:45)
[2021-11-24] MEDS: FLUCONAZOLE 100 mg/ NS 50 ML IV SCH (11:28)
[2021-11-24] MEDS: D5/0.45 NS 1,000 ML IV SCH (11:38)
[2021-11-24 11:57] LABS: ERYTHROCYTE SEDIMENTATION RATE 29 MM/HR (0-15)
--- NOTE | 2021-11-24 15:00 | NUR ---
Nutrition F/U Admitting Diagnosis Sepsis, acute embolism and thrombosis of unspecified vein Medical History Comment: Multiple MIs w/ cardiac stent placement, CABG, DM, HTN, BPH, CKD stage III, kidney stones w/ lithotripsy, gout. Pt also found w/ CHF, metabolic encephalopathy, severe malnutrition, elevated troponins, and CAD. SARS-CoV-2 Ag (Rapid) Negative 11/14, Hep C pending 11/14 Subjective Information: RD rounded to pt's bedside this afternoon. Pt's significant other at bedside. She reported that she was able to feed pt a bit of eggs and Mandarin oranges this morning, however, feels that pt has some difficulty swallowing despite chewing thoroughly. Primary RN reported that pt has not been eating much for the past few days -- RD suggested pt may be better off NPO d/t risk of aspiration/safety issue; RN agreed. She also stated that pt has a Sx tomorrow morning, likely ERCP and permacath placement as Steven cath is not working properly. Per EMR review, pt is confused/disoriented; no no PO intake records since 11/21; abd is firm w/ hypoactive bowel sounds; LBM x2 11/15; Eric scale: 14, jaundiced -- otherwise, skin intact per RN report. Pt is not yet meeting nutritional needs. Current Diet Order/Nutrition Support: Renal x1 day Education Provided Not Indicated Pertinent Medications: D50%NS at 50 ml/hr (204 kcal/day), lantus, SSI, retacrit Pertinent Labs: WBC 21 H, H/H 10.4 L/31.7 L, Na 134 L, BUN 106 H, CRE 6.13 H, BG 296 H, POC BG 199 H, Ca 7.1 L, Phos 9.7 H, Mg 2.4 H, ALB 1.8 L Height (Feet) 5 feet Height (Inches) 6.00 inches Weight (Pounds) 201 pounds 11/18 200#/90.7 kg 1# wt loss Patient Weight 91.172 kg UBW 200-205# per significant other 11/24 Body Mass Index 32.44 kg/m2 %IBW 142 [place]/Adjusted Body Weight 142#/64.5 kg; adj. BW: 156#/71.3 kg Recent Weight Change No - unable to verify Weight Status Obese Usual Diet At Home unable to verify Estimated Energy Expenditure (kcals/day) 3250-8450 kcals/day (30-35 kcals/kg Adj. IBW d/t obesity and sepsis) Estimated Protein Required (g/day) 85-107 g/day (1.2-1.5 g/kg Adj. IBW d/t obesity, sepsis and CKD/HD) Estimated Fluid Required (l/day) Per engineer specialist d/t CKD and CHF Problem/Etiology/Signs/Symptoms Altered nutrition-related labs R/T renal dysfunction AEB abnormal Na, BUN, and Cr lab values. *Ongoing Increased nutritional needs R/T metabolic demands AEB estimated nutritional requirements for sepsis. * Ongoing Swallowing difficulty R/T unknown etiology AEB significant other report. *New Expected Outcomes/Goals Monitor tolerance of intake w/ goal of pt meeting greater than 80% of estimated needs, labs trending WNL, normal GI function, skin integrity, wt maintenance. Dietitian Recommendations * NPO * Consider NGT placement and EN support if/when medically appropriate * Consider ST swallow eval Follow Up High Risk: F/U in 2-3 days
[2021-11-24] MEDS: DOCUSATE SODIUM 100 MG CAPSULE PO PRN (15:41)
--- NOTE | 2021-11-24 17:08 | NUR ---
Dietitian Recommendations * NPO * Consider NGT placement and EN support if/when medically appropriate * Consider ST swallow eval LP, RD Please refer to Nutrition F/U for details.
[2021-11-24] MEDS ORDERED: NALOXONE HCL 0.4 MG/ML AMP (NARCAN) IVP PRN ×2 (17:45)
--- NOTE | 2021-11-24 19:05 | NUR ---
Opening notes Received report from endorsing morning shift SHENA Morris for continuity of care. Patient is lying in bed with family member at the bedside in no signs of distress with IVF D5 1/2 NS @ 50mL/hr. Patient's vital signs blood pressure 107/57,heart rate 101, respirations 14, and SPO2 92% on room air. Plascencia catheter and biliary duct drainage is draining to gravity. Bed is locked and in lowest position, call light button within reach, fall and safety precautions is in place.
[2021-11-24] MEDS: MORPHINE 2 MG/ML INJ. SYRINGE IVP PRN (19:41)
--- NOTE | 2021-11-24 20:15 | NUR ---
MD Dr. Jasso called regarding placement of hemodialysis catheter tomorrow.
[2021-11-24] MEDS: NACL 0.9% 1,000 ML IV SCH (22:54)
[2021-11-25] VITALS (24 sets, daily range): BP systolic 91–146
[2021-11-25] MEDS ORDERED: PROCHLORPERAZINE EDISYLATE 10 MG/2 ML VIAL ONE (00:33)
[2021-11-25] MEDS: PROCHLORPERAZINE EDISYLATE 10 MG/2 ML VIAL IVP PRN ×2 (00:34→14:35)
[2021-11-25] MEDS: MORPHINE 2 MG/ML INJ. SYRINGE IVP PRN ×2 (01:50→08:55)
[2021-11-25 02:32] LABS: ANION GAP 15 (5-15); CHLORIDE 97 mmol/L (98-107); CREATININE 6.23 mg/dL (0.55-1.30); GLUCOSE 212 mg/dL (70-99); SODIUM SERUM 134 mmol/L (136-145)
[2021-11-25 02:38] LABS: ALANINE AMINOTRANSFERASE 59 U/L (12-78); ALBUMIN 1.6 g/dL (3.4-4.8); ASPARTATE AMINOTRANSFERASE 46 U/L (10-37); TOTAL BILIRUBIN 6.5 mg/dL (0.0-1.0)
[2021-11-25 02:42] LABS: UREA NITROGEN, BLOOD 109 mg/dL (8-21)
[2021-11-25 02:48] LABS: HEMATOCRIT 32.2 % (36-54); HEMOGLOBIN 10.5 g/dL (14.0-18.0); MEAN CORPUSCULAR HEMOGLOBIN 28 pg (27-31); MEAN CORPUSCULAR HGB CONC 33 % (32-36); MEAN CORPUSCULAR VOLUME 84 fL (79.0-98.0); PLATELET COUNT (AUTO) 133 K/uL (130-430); RED BLOOD CELL COUNT(AUTO) 3.82 MIL/uL (4.2-6.2); RED CELL DISTRIBUTION WIDTH 17.9 % (9.0-15.0); WHITE BLOOD COUNT (AUTO) 24.2 K/uL (4.8-10.8)
--- NOTE | 2021-11-25 02:48 | NUR ---
PAGED Paged Dr. Porter for patients critical lab BUN 109. no new orders
[2021-11-25 03:01] LABS: INR 1.3 (0.80-1.20); PROTHROMBIN TIME 12.9 SECS (9.5-12.5)
[2021-11-25 03:56] LABS: BAND % (MANUAL) 1 % (0-6); LYMPHOCYTES % (MANUAL) 6 % (20-46)
[2021-11-25 06:24] LABS: INR 1.3 (0.80-1.20); PROTHROMBIN TIME 13.1 SECS (9.5-12.5)
[2021-11-25] MEDS: metroNIDAZOLE 250 mg/NS 50 ML IV SCH ×4 (06:29→22:00)
[2021-11-25] MEDS ORDERED: INDOMETHACIN 50 MG SUPP.RECT RC ONE (06:30)
[2021-11-25] MEDS: INSULIN LISPRO SLIDING SCALE 100 UNITS/ML VIAL (humaLOG) SUBCUT PRN ×3 (06:38→17:27)
[2021-11-25 06:41] LABS: BASOPHILS # (AUTO) 0.1 K/uL (0.0-0.2); BASOPHILS % (AUTO) 0.3 % (0.0-2.0); HEMATOCRIT 32.2 % (36-54); HEMOGLOBIN 10.5 g/dL (14.0-18.0); LYMPHOCYTES # (AUTO) 5.3 K/uL (1.0-5.5); LYMPHOCYTES % (AUTO) 22.4 % (20.5-51.5); MEAN CORPUSCULAR HEMOGLOBIN 28 pg (27-31); MEAN CORPUSCULAR HGB CONC 33 % (32-36); MEAN CORPUSCULAR VOLUME 85 fL (79.0-98.0); MONOCYTES # (AUTO) 0.5 K/uL (0.0-1.0); MONOCYTES % (AUTO) 2.1 % (1.7-9.3); NEUTROPHILS # (AUTO) 17.7 K/uL (1.8-7.7); NEUTROPHILS % (AUTO) 75.2 % (40.0-70.0); PLATELET COUNT (AUTO) 132 K/uL (130-430); RED BLOOD CELL COUNT(AUTO) 3.81 MIL/uL (4.2-6.2); RED CELL DISTRIBUTION WIDTH 18.7 % (9.0-15.0); WHITE BLOOD COUNT (AUTO) 23.5 K/uL (4.8-10.8)
[2021-11-25] MEDS ORDERED: METOPROLOL TARTRATE 5 MG/5 ML AMPUL IVP PRN (07:15)
[2021-11-25 07:34] LABS: ALANINE AMINOTRANSFERASE 64 U/L (12-78); ALBUMIN 1.7 g/dL (3.4-4.8); ANION GAP 16 (5-15); ASPARTATE AMINOTRANSFERASE 45 U/L (10-37); CHLORIDE 97 mmol/L (98-107); CREATININE 6.43 mg/dL (0.55-1.30); GLUCOSE 211 mg/dL (70-99); POTASSIUM 5.1 mmol/L (3.5-5.1); SODIUM SERUM 135 mmol/L (136-145); TOTAL BILIRUBIN 6.3 mg/dL (0.0-1.0)
[2021-11-25] MEDS: INSULIN GLARGINE 100 UNITS/ML 10 ML VIAL SUBCUT SCH ×2 (08:59→20:45)
[2021-11-25] MEDS: METOPROLOL SUCCINATE 50 MG TAB.SR.24H (TOPROL XL) PO SCH ×2 (09:00→20:41)
[2021-11-25] MEDS: MIDODRINE HCL 5 MG TABLET (PROAMATINE) PO SCH ×3 (09:00→20:42)
[2021-11-25] MEDS: DILTIAZEM HCL 30 MG TABLET PO SCH ×3 (09:01→20:42)
[2021-11-25] MEDS: D5/0.45 NS 1,000 ML IV SCH (09:02)
[2021-11-25 09:54] LABS: ERYTHROCYTE SEDIMENTATION RATE 23 MM/HR (0-15)
--- NOTE | 2021-11-25 10:00 | NUR ---
DR YUEN AT BEDSIDE AND DISCUSSED PLAN OF CARE WITH PATIENT, EDUCATED DAUGHTER AND GIRL FRIEND DOMINGA OVER THE PHONE ABOUT PLAN TO REPLACE YESENIA CATHETER TODAY BY DR HU AND THAT THE ERCP IS ON HOLD UNTIL CURRENT STATUS IMPROVES, FAMILY VOICED UNDERSTANDING AND ALL QUESTION ANSWERED.
[2021-11-25 10:25] LABS: PHOSPHORUS 10.7 mg/dL (2.7-4.5)
[2021-11-25 11:02] LABS: CALCIUM 6.9 mg/dL (8.4-11.0)
[2021-11-25 11:03] LABS: UREA NITROGEN, BLOOD 117 mg/dL (8-21)
[2021-11-25 11:59] LABS: C-REACTIVE PROTEIN QUANT 1.1 mg/dL (0-0.5)
[2021-11-25] MEDS ORDERED: HEPARIN SODIUM,PORCINE 5,000 UNITS/ML VIAL IVP ONE ×2 (12:00→20:15)
[2021-11-25] MEDS: FLUCONAZOLE 100 mg/ NS 50 ML IV SCH (12:46)
--- NOTE | 2021-11-25 15:30 | NUR ---
DR TRAN AND DR YUEN STATED PATIENT IS NOT CLEARED TO BE DOWN GRADED, THEY WANT TO CONTINUE ICU STATUS UNTIL PATIENT IS MORE STABLE.
--- NOTE | 2021-11-25 17:00 | NUR ---
YESENIA CATHETER REPLACED BY DR HU AT BEDSIDE, ULTRASOUND GUIDED WITH LOCAL ANESTHETIC INJECTED AROUND SITE, PATIENT TOLERATED WELL, PENDING X RAY, DIALYSIS SCHEDULED FOR TONIGHT, STERILE DRESSING APPLIED, SITE IS CLEAN DRY AND INTACT.
[2021-11-25] MEDS: EPOETIN ALFA-EPBX 4,000 UNITS/ML VIAL SUBCUT SCH (17:30)
[2021-11-25] MEDS ORDERED: ALBUMIN HUMAN 25% 100 ML IV ONE ×2 (17:45→17:48)
[2021-11-25] MEDS ORDERED: HEPARIN SODIUM, PORCINE 10,000 UNITS/ 10 ML VIAL MC ONE (17:45)
[2021-11-25] MEDS: PIPERACILLIN/TAZO 2.25G/DEX-IS 50 ML IV SCH (18:00)
--- NOTE | 2021-11-25 18:38 | NUR ---
UNABLE TO PROVIDED 1800N ZOSYN BECAUSE PATIENT DOES NOT HAVE IV ACCESS, PICC LINE TO BE INSERTED TONIGHT AFTER DIALYSIS, PATIENT IS CURRENTLY RECEIVING DIALYSIS.
--- NOTE | 2021-11-25 19:20 | NUR ---
ENDORSED CONTINUATION OF CARE TO ONEYDA
--- NOTE | 2021-11-25 19:20 | NUR ---
Opening notes Received report from endorsing morning shift SHENA Vee for continuity of care. Patient is lying in bed in no signs of distress and on dialysis. Family member is at the bedside. Patient's vital signs blood pressure 123/57, heart rate 99, respirations 16, and SPO2 94% on room air. Plascencia catheter and biliary duct drainage is in place draining to gravity. Bed is locked and in lowest position, call light button within reach, fall and safety precautions is in place.
--- NOTE | 2021-11-25 19:49 | NUR ---
MD Dr. House called for updates, gave verbal updates that the patient is still doing his dialysis. Dr. House stated that the patient will be staying in the ICU for now for observation. No new order given.
--- NOTE | 2021-11-25 20:26 | NUR ---
Dialysis Gave 5,000 units of heparin x2, total of 10,000 units to the ZEESHAN Guzman RN.
--- NOTE | 2021-11-25 23:45 | NUR ---
IV Tried to insert an IV on the patient's hand but unsuccessful. PICC line insertion is still pending.
[2021-11-26] VITALS (21 sets, daily range): BP systolic 95–142
[2021-11-26] MEDS: D5/0.45 NS 1,000 ML IV SCH ×2 (03:30→23:30)
[2021-11-26] MEDS: PIPERACILLIN/TAZO 2.25G/DEX-IS 50 ML IV SCH ×4 (06:00→18:00)
[2021-11-26] MEDS: metroNIDAZOLE 250 mg/NS 50 ML IV SCH ×2 (06:00→14:00)
[2021-11-26 06:46] LABS: INR 1.4 (0.80-1.20); PROTHROMBIN TIME 14.5 SECS (9.5-12.5)
[2021-11-26 07:46] LABS: ALANINE AMINOTRANSFERASE 48 U/L (12-78); ALBUMIN 1.8 g/dL (3.4-4.8); ANION GAP 15 (5-15); ASPARTATE AMINOTRANSFERASE 37 U/L (10-37); CALCIUM 7.4 mg/dL (8.4-11.0); CHLORIDE 100 mmol/L (98-107); CREATININE 5.19 mg/dL (0.55-1.30); GLUCOSE 94 mg/dL (70-99); PHOSPHORUS 8.9 mg/dL (2.7-4.5); POTASSIUM 5.1 mmol/L (3.5-5.1); SODIUM SERUM 139 mmol/L (136-145); TOTAL BILIRUBIN 5.4 mg/dL (0.0-1.0); UREA NITROGEN, BLOOD 93 mg/dL (8-21)
[2021-11-26 08:03] LABS: C-REACTIVE PROTEIN QUANT 1.5 mg/dL (0-0.5)
[2021-11-26 08:07] LABS: BASOPHILS % (AUTO) 0.1 % (0.0-2.0); HEMATOCRIT 28.9 % (36-54); HEMOGLOBIN 9.4 g/dL (14.0-18.0); LYMPHOCYTES # (AUTO) 0.7 K/uL (1.0-5.5); MEAN CORPUSCULAR HEMOGLOBIN 28 pg (27-31); MEAN CORPUSCULAR HGB CONC 33 % (32-36); MEAN CORPUSCULAR VOLUME 85 fL (79.0-98.0); MONOCYTES # (AUTO) 1.4 K/uL (0.0-1.0); NEUTROPHILS # (AUTO) 33.9 K/uL (1.8-7.7); NEUTROPHILS % (AUTO) 93.9 % (40.0-70.0); PLATELET COUNT (AUTO) 109 K/uL (130-430); RED BLOOD CELL COUNT(AUTO) 3.38 MIL/uL (4.2-6.2)
[2021-11-26] MEDS: INSULIN GLARGINE 100 UNITS/ML 10 ML VIAL SUBCUT SCH (09:00)
[2021-11-26] MEDS: MIDODRINE HCL 5 MG TABLET (PROAMATINE) PO SCH ×3 (09:10→21:00)
[2021-11-26] MEDS: DILTIAZEM HCL 30 MG TABLET PO SCH ×3 (09:10→21:35)
[2021-11-26] MEDS: METOPROLOL SUCCINATE 50 MG TAB.SR.24H (TOPROL XL) PO SCH ×2 (09:10→21:36)
[2021-11-26 09:27] LABS: ERYTHROCYTE SEDIMENTATION RATE 16 MM/HR (0-15)
[2021-11-26] MEDS ORDERED: PHYTONADIONE 10 MG in NS 50 ML IV ONE (11:00)
--- NOTE | 2021-11-26 11:00 | NUR ---
Unable to Successfully Start IV Access After Two Attempts. Family Refusing Third Attempt Despite Being Educated on the Need For IV Access In Order to Receive IV Antibiotics. Family Still Declining IV Start at this Time. Continue to Monitor.
[2021-11-26] MEDS ORDERED: ALBUMIN HUMAN 25% 100 ML IV ONE ×3 (12:31→18:22)
--- NOTE | 2021-11-26 14:00 | NUR ---
Patient Family Still Refusing IV Start at this Time. Reeducated Family on the Importance of IV Access for Scheduled Antibiotics. Family Intent on Refusing IV Start. Unable to Give Any Scheduled Antibiotics at this Time. Continue to Monitor.
--- NOTE | 2021-11-26 16:08 | NUR ---
Nutrition F/U Admitting Diagnosis Sepsis, acute embolism and thrombosis of unspecified vein Medical History Comment: Multiple MIs w/ cardiac stent placement, CABG, DM, HTN, BPH, CKD stage III, kidney stones w/ lithotripsy, gout. Pt also found w/ CHF, metabolic encephalopathy, severe malnutrition, elevated troponins, and CAD. SARS-CoV-2 Ag (Rapid) Negative 11/14, Hep C pending 11/14 Subjective Information: RD spoke w/ pt's primary RN via phone call. He reported that pt's appetite has been low since admission; ate about 25% of breakfast; scheduled for dialysis today. He confirmed that pt had dialysis yesterday after dialysis catheter replacement and there are plans for dialysis again tomorrow. He stated they are observing aspiration precautions and encouraging pt to eat small portions and keeping head of bed elevated during meals. RD offered Nepro ONS and RN agreed that pt would tolerate this well as pt has been requesting and drinking a lot of water. Per EMR review, no recent PO intakes documented; pt is on RA; abd is firm w/ hypoactive bowel sounds; LBM x2 11/15; Eric scale: 13, jaundiced. Pt is not meeting nutritional demands. Current Diet Order/Nutrition Support: Renal x1 day Education Provided Not Indicated Pertinent Medications: morphine, cardizem, SSI, retacrit, haldol, colace Pertinent Labs: WBC 36 H, H/H 9.4 L/28.9 L, Na 139 WNL, BUN 93 H, CRE 5.19 H, BG 94 H, POC BG 75 WNL, Ca 7.4 L, Phos 8.9 H, Mg 2.1 WNL, ALB 1.8 L Height (Feet) 5 feet Height (Inches) 6.00 inches Weight (Pounds) 201 pounds 11/18 200#/90.7 kg 1# wt loss Patient Weight 91.172 kg UBW 200-205# per significant other 11/24 Body Mass Index 32.44 kg/m2 %IBW 142 [place]/Adjusted Body Weight 142#/64.5 kg; adj. BW: 156#/71.3 kg Recent Weight Change No - unable to verify Weight Status Obese Usual Diet At Home unable to verify Estimated Energy Expenditure (kcals/day) 2585-8150 kcals/day (30-35 kcals/kg Adj. IBW d/t obesity and sepsis) Estimated Protein Required (g/day) 85-107 g/day (1.2-1.5 g/kg Adj. IBW d/t obesity, sepsis and CKD/HD) Estimated Fluid Required (l/day) Per estate conservator d/t CKD and CHF Problem/Etiology/Signs/Symptoms Altered nutrition-related labs R/T renal dysfunction AEB abnormal Na, BUN, and Cr lab values. *Ongoing Increased nutritional needs R/T metabolic demands AEB estimated nutritional requirements for sepsis. *Ongoing Swallowing difficulty R/T unknown etiology AEB significant other report. *RN reported no chewing/swallowing issues 11/26 Expected Outcomes/Goals Monitor tolerance of intake w/ goal of pt meeting greater than 80% of estimated needs, labs trending WNL, normal GI function, skin integrity, wt maintenance. Dietitian Recommendations * Renal, CCHO standard carb-60 gm diet, Nepro TID (ONS yields 1260 kcal/day, 57 gm protein/day) * Encourage increase PO intakes * Consider stool softeners/laxatives -- no BM noted since 11/15 Follow Up High Risk: F/U in 2-3 days
--- NOTE | 2021-11-26 16:15 | NUR ---
Dietitian Recommendations * Renal, CCHO standard carb-60 gm diet, Nepro TID (ONS yields 1260 kcal/day, 57 gm protein/day) * Encourage increase PO intakes * Consider stool softeners/laxatives -- no BM noted since 11/15 LP, RD Please refer to Nutrition F/U for details.
[2021-11-26] MEDS ORDERED: HEPARIN SODIUM,PORCINE 5,000 UNITS/ML VIAL ONE (20:44)
[2021-11-27] VITALS (32 sets, daily range): BP systolic 75–153
[2021-11-27] MEDS: PIPERACILLIN/TAZO 2.25G/DEX-IS 50 ML IV SCH ×5 (00:01→23:12)
[2021-11-27] MEDS: metroNIDAZOLE 250 mg/NS 50 ML IV SCH ×4 (00:02→21:31)
--- NOTE | 2021-11-27 01:32 | NUR ---
CHEVY MONTEJO Blood[facility]. Notified Dr. Montejo at this time. Orders CBC. Addendum: 11/27/21 at 0141 by Denny Benites RN Also orders to have the sample sent in for c.diff per order placed on 11/26
--- NOTE | 2021-11-27 01:57 | NUR ---
PAGED DR. THORNTON FOR LOW BLOOD PRESSURE
--- NOTE | 2021-11-27 02:20 | NUR ---
2ND PAGE FOR DR THORNTON FOR LOW BLOOD PRESSURE
--- NOTE | 2021-11-27 02:54 | NUR ---
PAGED DR. SOMMER - LOW BLOOD PRESSURE Systolic ranging 60-69. Checked multiple times on right arm left leg right leg. Notified Dr. Sommer, states start on levophed drip per the emar and start 100 cc 25% albumin IV deliver over 1 hr. Transfer to ICU
[2021-11-27] MEDS ORDERED: ALBUMIN HUMAN 25% 100 ML IV ONE (03:00)
--- NOTE | 2021-11-27 03:30 | NUR ---
Patient transferred back to ICU. Brusher Tender Brie way charge nurse duties from undersigned. Jayy Abdi RN. Patient to be started on Levophed due to hypotension.
--- NOTE | 2021-11-27 03:50 | NUR ---
Approximately at this time patient transferred to ICU per Dr. Sommer's orders for administration of levophed. Under the care of Jayy CHATTERJEE.
[2021-11-27] MEDS ORDERED: NOREPINEPHRINE 4 MG/4 ML VIAL IV ONE (03:54)
[2021-11-27] MEDS: NOREPINEPHRINE BITARTRATE 8 MG in NS 242 ML IV PRN ×2 (04:06→12:45)
[2021-11-27 07:14] LABS: HEMOGLOBIN 7.3 g/dL (14.0-18.0); MEAN CORPUSCULAR HEMOGLOBIN 28 pg (27-31); MEAN CORPUSCULAR HGB CONC 32 % (32-36); MEAN CORPUSCULAR VOLUME 87 fL (79.0-98.0); PLATELET COUNT (AUTO) 98 K/uL (130-430); RED BLOOD CELL COUNT(AUTO) 2.65 MIL/uL (4.2-6.2); RED CELL DISTRIBUTION WIDTH 20.8 % (9.0-15.0)
[2021-11-27 07:17] LABS: INR 1.6 (0.80-1.20); PROTHROMBIN TIME 15.9 SECS (9.5-12.5)
[2021-11-27 07:37] LABS: ALBUMIN 2.5 g/dL (3.4-4.8); ANION GAP 19 (5-15); CHLORIDE 99 mmol/L (98-107); CREATININE 4.55 mg/dL (0.55-1.30); GLUCOSE 104 mg/dL (70-99); POTASSIUM 5.4 mmol/L (3.5-5.1); SODIUM SERUM 139 mmol/L (136-145); TOTAL BILIRUBIN 5.6 mg/dL (0.0-1.0); UREA NITROGEN, BLOOD 83 mg/dL (8-21)
[2021-11-27 08:46] LABS: ALANINE AMINOTRANSFERASE 57 U/L (12-78); ASPARTATE AMINOTRANSFERASE 88 U/L (10-37); PHOSPHORUS 8.9 mg/dL (2.7-4.5)
[2021-11-27 08:52] LABS: CALCIUM 6.5 mg/dL (8.4-11.0)
[2021-11-27 09:04] LABS: C-REACTIVE PROTEIN QUANT 4.4 mg/dL (0-0.5)
[2021-11-27 10:06] LABS: WHITE BLOOD COUNT (AUTO) 49.2 K/uL (4.8-10.8)
[2021-11-27 10:22] LABS: ERYTHROCYTE SEDIMENTATION RATE 18 MM/HR (0-15)
[2021-11-27] MEDS: PROCHLORPERAZINE EDISYLATE 10 MG/2 ML VIAL IVP PRN (11:34)
[2021-11-27] MEDS: MIDODRINE HCL 5 MG TABLET (PROAMATINE) PO SCH ×3 (11:35→21:30)
[2021-11-27] MEDS: MORPHINE 2 MG/ML INJ. SYRINGE IVP PRN (11:39)
[2021-11-27] MEDS: DILTIAZEM HCL 30 MG TABLET PO SCH ×3 (11:41→21:30)
[2021-11-27] MEDS: METOPROLOL SUCCINATE 50 MG TAB.SR.24H (TOPROL XL) PO SCH ×2 (11:42→21:31)
[2021-11-27] MEDS ORDERED: CALCIUM GLUCONATE 1 GM in NS 100 ML IV ONE (12:00)
[2021-11-27 12:36] LABS: ATYPICAL LYMPHOCYTES % 0 % (0-0); BAND % (MANUAL) 0 % (0-6); BASOPHILS % (MANUAL) 0 % (0-2); EOSINOPHILS % (MANUAL) 0 % (0-7); LYMPHOCYTES % (MANUAL) 3 % (20-46); MONOCYTES % (MANUAL) 4 % (0-11)
[2021-11-27] MEDS: ALBUMIN HUMAN 25% 100 ML IV SCH ×3 (12:41→20:00)
--- NOTE | 2021-11-27 16:15 | NUR ---
C-Diff stool sample Lab called to say they need another stool sample to run the c-diff. The sample sent had too much blood in it. Bedside RN made aware.
[2021-11-27] MEDS ORDERED: PHYTONADIONE 10 MG in NS 50 ML IV ONE (17:30)
[2021-11-27] MEDS: D5/0.45 NS 1,000 ML IV SCH (18:44)
--- NOTE | 2021-11-27 19:15 | NUR ---
change of shift.pt.presents lethargic affect calm,resting.pt.presents picc line location;lt.bicept intact;iv fluids/drip:levophed infusing.conc rate;0.1mcq/kg/min.pt.presents rt.inj:hemo-dialysis access intact.pt.presents colon cath intact;patent.pt.presents room air respiratory status.02 sat%=93%.pt.presents biliary tube;location rt.abdomen.intact;patent.family present.call light w/in access of the pt.
--- NOTE | 2021-11-27 20:00 | NUR ---
pt.assessed.v/s assessed values note b/p status.picc line intact iv fluids/drip levophed infusing.per flacc pain mgx pt.absent facial grimaces/body posturing.pt.assessed for cleanliness.pt.repositioned.biliary tube intact;patent.colon cath attended to.call light placed w/in access of the pt.
--- NOTE | 2021-11-27 21:00 | NUR ---
2100p medications administered.pt.presents swallow capacity;function compromised.medications required crushed/mixture apple sauce.
[2021-11-27] MEDS ORDERED: MIDODRINE HCL 5 MG TABLET (PROAMATINE) ONE (21:27)
--- NOTE | 2021-11-27 22:00 | NUR ---
pt.assessed.v/s assessed values note b/p status.02 sat%=93%.picc line intact iv fluids/drip;levophed infusing.colon cath intact attended to.per flacc pain mgx pt.absent facial grimaces/body posturing.pt.assessed for cleanliness.pt.repositioned.call light placed w/in access of the pt. Addendum: 11/28/21 at 0250 by Russel Cruz RN biliary tube intact patent.
[2021-11-28] VITALS (42 sets, daily range): BP systolic 84–153
--- NOTE | 2021-11-28 | NUR ---
pt.assessed.v/s assessed values wnl.note b/p status.picc line intact iv fluids/drip levophed infusing.i have attended to the isaiah gallo. per [place] pain mgx pt.absent facial grimaces/body posturing.pt.assessed for cleanliness.pt.repositioned.02sat%=93%,call light placed w/in access of the pt. Addendum: 11/28/21 at 0235 by Russel Cruz RN blood glucose assessed value:140mg/dl. Addendum: 11/28/21 at 0236 by Russel Cruz RN isaiah gallo attended to. Addendum: 11/28/21 at 0245 by Russel Cruz RN biliary tube intact;patent.
--- NOTE | 2021-11-28 00:50 | NUR ---
blood transfusion initiated.per protocol v/s attended to.
--- NOTE | 2021-11-28 01:05 | NUR ---
per blood transfusion protocol i remained w the pt.th initial 15mins of the blood transfusion.no adverse reaction manifested.
[2021-11-28] MEDS: NOREPINEPHRINE BITARTRATE 8 MG in NS 242 ML IV PRN ×3 (01:54→19:48)
--- NOTE | 2021-11-28 02:00 | NUR ---
pt.assessed.v/s assessed values wnl.note b/p status.02-sat%=93%.picc line intact blood transfusion in progress.per flacc pain mgx pt.absent facial grimaces/body posturing.pt.assessed for cleanliness.pt.repositioned.call light placed w/in access of the pt. Addendum: 11/28/21 at 0246 by Russel Cruz RN biliary tube intact;patent.
--- NOTE | 2021-11-28 04:00 | NUR ---
pt.assessed.v/s assessed values wnl.note b/p status.picc line intact blood transfusion completed.no adverse reaction manifested. post blood transfusion ns flush infusing.colon cath intact i have attended to the colon cath.biliary tube intact;patent.per flacc pain mgx pt.absent facial grimaces/body posturing.pt.assessed for cleanliness.pt.repositioned.call light placed w/in access of the pt.
[2021-11-28] MEDS: metroNIDAZOLE 250 mg/NS 50 ML IV SCH ×3 (05:23→22:12)
[2021-11-28] MEDS: PIPERACILLIN/TAZO 2.25G/DEX-IS 50 ML IV SCH ×4 (05:24→23:45)
--- NOTE | 2021-11-28 06:00 | NUR ---
PT.ASSESSED.V/S ASSESSED NOTE B/P STATUS ELEVATED.I HAVE STOPPED THE ADMINISTRATION LEVOPHED.BLOOD GLUCOSE ASSESSED VALUE;133MG/DL.PICC LINE INTACT ABX:FLAGYL/ZOSYN ADMINISTERED.REDDY CATH/BILARY TUBE ATTENDED TO.PER FLACC PAIN MGX PT.ABSENT FACIAL GRIMACES/BODY POSTURING.PT.REPOSITIONED.02-SAT%=93%.CALL LIGHT/TELEPHONE PLACE W/IN ACCESS OF THE PT.
[2021-11-28 07:36] LABS: ALANINE AMINOTRANSFERASE 50 U/L (12-78); ALBUMIN 2.4 g/dL (3.4-4.8); ANION GAP 18 (5-15); C-REACTIVE PROTEIN QUANT 7.5 mg/dL (0-0.5); CALCIUM 7.3 mg/dL (8.4-11.0); CHLORIDE 99 mmol/L (98-107); POTASSIUM 5.4 mmol/L (3.5-5.1); SODIUM SERUM 138 mmol/L (136-145); TOTAL BILIRUBIN 6.4 mg/dL (0.0-1.0)
[2021-11-28 07:42] LABS: INR 1.4 (0.80-1.20)
[2021-11-28 07:58] LABS: PROTHROMBIN TIME 14.3 SECS (9.5-12.5)
[2021-11-28 08:07] LABS: BASOPHILS % (AUTO) 0.1 % (0.0-2.0); EOSINOPHILS # (AUTO) 0.1 K/uL (0.0-0.4); EOSINOPHILS % (AUTO) 0.2 % (0.0-4.0); LYMPHOCYTES # (AUTO) 0.7 K/uL (1.0-5.5); LYMPHOCYTES % (AUTO) 1.6 % (20.5-51.5); MEAN CORPUSCULAR HEMOGLOBIN 28 pg (27-31); MEAN CORPUSCULAR HGB CONC 33 % (32-36); MEAN CORPUSCULAR VOLUME 87 fL (79.0-98.0); MONOCYTES # (AUTO) 1.2 K/uL (0.0-1.0); NEUTROPHILS # (AUTO) 38.8 K/uL (1.8-7.7); PLATELET COUNT (AUTO) 97 K/uL (130-430); RED BLOOD CELL COUNT(AUTO) 2.46 MIL/uL (4.2-6.2); RED CELL DISTRIBUTION WIDTH 18.3 % (9.0-15.0)
[2021-11-28 08:19] LABS: ASPARTATE AMINOTRANSFERASE 67 U/L (10-37); CREATININE 5.12 mg/dL (0.55-1.30); GLUCOSE 143 mg/dL (70-99); PHOSPHORUS 8.9 mg/dL (2.7-4.5)
[2021-11-28 08:25] LABS: UREA NITROGEN, BLOOD 105 mg/dL (8-21)
[2021-11-28] MEDS: METOPROLOL SUCCINATE 50 MG TAB.SR.24H (TOPROL XL) PO SCH ×2 (09:00→20:40)
[2021-11-28] MEDS: MIDODRINE HCL 5 MG TABLET (PROAMATINE) PO SCH ×3 (09:00→20:41)
[2021-11-28] MEDS: DILTIAZEM HCL 30 MG TABLET PO SCH ×3 (09:00→20:41)
[2021-11-28 09:20] LABS: HEMATOCRIT 21.3 % (36-54); WHITE BLOOD COUNT (AUTO) 40.9 K/uL (4.8-10.8)
[2021-11-28 09:21] LABS: NEUTROPHILS % (AUTO) 95.1 % (40.0-70.0)
[2021-11-28] MEDS ORDERED: NOREPINEPHRINE 4 MG/4 ML VIAL IV ONE (09:58)
[2021-11-28 10:54] LABS: ERYTHROCYTE SEDIMENTATION RATE 10 MM/HR (0-15)
[2021-11-28] MEDS ORDERED: HEPARIN SODIUM,PORCINE 5,000 UNITS/ML VIAL ONE (11:47)
--- NOTE | 2021-11-28 12:39 | NUR ---
Family Update to [facility]. Pts daughter Brooklynn called in to see if any physicians have come in to see the patient. Pts girlfriend is not at the bedside at this time. I informed her that came in but left. She asked about the feeding tube through the nose and when that would be done. I explained that galileo RN would decide when the best time to do it would be. I explained that he just completed his HD and that his heartrate was elevated and he was back on his BP medication and that sometimes this happens. I explained that once his HR has come down Galileo would insert the NGT. I also said that he needs it for the xray cholangiogram to give the contrast. I also said that once that has been done, we would start feeding him through this tube.
--- NOTE | 2021-11-28 12:47 | NUR ---
Family Update to Brooklynn (cont). I also informed her that if Galileo RN is not able to insert the NGT he would notify the MD. Brooklynn indicated that she understood and is in agreement. I told her I would let the other MD's know to call her when they round. I also gave Dr. Mendenhall her phone number and informed him that she is requesting to speak with every doctor on the case.
[2021-11-28] MEDS: D5/0.45 NS 1,000 ML IV SCH (14:43)
[2021-11-28] MEDS: EPOETIN ALFA 10,000 UNITS/ML VIAL SUBCUT SCH (17:27)
--- NOTE | 2021-11-28 19:15 | NUR ---
Opening notes Received report from endorsing morning SHENA Gurrola for continuity of care. Patient is lying in bed in no signs of distress with IVF D5 1/2 NS @ 50mL/hr, and levophed 0.15 mcg/kg/min. Patient's significant other is at the bedside. Patient's vital signs blood pressure 109/72, heart rate 120, respirations 20, and SPO2 97% on nasal cannula 3L. Plascencia catheter is in place draining to gravity. Bed is locked and in lowest position, fall and safety precautions is in place.
[2021-11-29] VITALS (41 sets, daily range): BP systolic 87–186
[2021-11-29] MEDS ORDERED: NOREPINEPHRINE 4 MG/4 ML VIAL IV ONE ×2 (04:09→23:15)
[2021-11-29] MEDS: NOREPINEPHRINE BITARTRATE 8 MG in NS 242 ML IV PRN ×3 (04:11→23:17)
[2021-11-29] MEDS: PIPERACILLIN/TAZO 2.25G/DEX-IS 50 ML IV SCH ×3 (05:43→17:43)
[2021-11-29 06:48] LABS: ALANINE AMINOTRANSFERASE 53 U/L (12-78); ALBUMIN 1.9 g/dL (3.4-4.8); ANION GAP 16 (5-15); ASPARTATE AMINOTRANSFERASE 69 U/L (10-37); CHLORIDE 98 mmol/L (98-107); CREATININE 4.33 mg/dL (0.55-1.30); GLUCOSE 260 mg/dL (70-99); POTASSIUM 4.8 mmol/L (3.5-5.1); SODIUM SERUM 134 mmol/L (136-145); TOTAL BILIRUBIN 6.6 mg/dL (0.0-1.0); UREA NITROGEN, BLOOD 88 mg/dL (8-21)
[2021-11-29] MEDS: INSULIN LISPRO SLIDING SCALE 100 UNITS/ML VIAL (humaLOG) SUBCUT PRN ×4 (06:55→21:18)
[2021-11-29] MEDS: MIDODRINE HCL 5 MG TABLET (PROAMATINE) PO SCH ×3 (08:03→21:15)
[2021-11-29] MEDS: metroNIDAZOLE 250 mg/NS 50 ML IV SCH ×2 (08:03→17:38)
[2021-11-29] MEDS: DILTIAZEM HCL 30 MG TABLET PO SCH ×3 (08:08→21:15)
[2021-11-29] MEDS: METOPROLOL SUCCINATE 50 MG TAB.SR.24H (TOPROL XL) PO SCH ×2 (08:09→21:16)
[2021-11-29 08:29] LABS: CALCIUM 7.1 mg/dL (8.4-11.0)
[2021-11-29 09:07] LABS: HEMATOCRIT 23.3 % (36-54); HEMOGLOBIN 7.4 g/dL (14.0-18.0); MEAN CORPUSCULAR HEMOGLOBIN 29 pg (27-31); MEAN CORPUSCULAR HGB CONC 32 % (32-36); MEAN CORPUSCULAR VOLUME 89 fL (79.0-98.0); PLATELET COUNT (AUTO) 89 K/uL (130-430); RED BLOOD CELL COUNT(AUTO) 2.61 MIL/uL (4.2-6.2); RED CELL DISTRIBUTION WIDTH 21.6 % (9.0-15.0)
[2021-11-29 09:39] LABS: WHITE BLOOD COUNT (AUTO) 46.4 K/uL (4.8-10.8)
--- NOTE | 2021-11-29 09:41 | NUR ---
Received a call from Neyda of Laboratory for critical value WBC 46.4 slightly up from previous. I am informing Gurrola the primary nurse to follow up with .
[2021-11-29] MEDS: D5/0.45 NS 1,000 ML IV SCH (12:07)
[2021-11-29 12:16] LABS: INR 1.4 (0.80-1.20); PROTHROMBIN TIME 14.4 SECS (9.5-12.5)
[2021-11-29 13:00] LABS: BASOPHILS % (MANUAL) 0 % (0-2); EOSINOPHILS % (MANUAL) 0 % (0-7); LYMPHOCYTES % (MANUAL) 1 % (20-46); MONOCYTES % (MANUAL) 3 % (0-11)
[2021-11-29] MEDS ORDERED: VANCOMYCIN HCL Non-Formulary 125 MG CAPSULE PO SCH (13:00)
--- NOTE | 2021-11-29 13:45 | NUR ---
Patient transported to CT Scan for diagnostic. Patient tolerated Scan without incident. Patient returned to room without incident. Continue to monitor.
--- NOTE | 2021-11-29 14:14 | NUR ---
Nutrition F/U Admitting Diagnosis Sepsis, acute embolism and thrombosis of unspecified vein Medical History Comment: Multiple MIs w/ cardiac stent placement, CABG, DM, HTN, BPH, CKD stage III, kidney stones w/ lithotripsy, gout. Pt also found w/ CHF, metabolic encephalopathy, severe malnutrition, elevated troponins, and CAD. SARS-CoV-2 Ag (Rapid) Negative 11/14, Hep C pending 11/14 Subjective Information: Per EMR review, pt on 3 L NC x1 day. Eric score 12, pt continues to be jaundiced, erythema noted on sacrum, 4+ pitting edema bilateral arm, 2+ pitting edema bilateral leg, non-pitting edema bilateral generalized. Per ICU rounds, pt is noted to have gallbladder blockage. Pt continues to be lethargic and confused. Pt had HD yesterday. Edema is improving. Pt had 1 small bloody BM overnight. Current TF prescription is not meeting nutritional needs AEB provides 1296 kcals/day and 58 g protein/day which meets 61% of estimated kcal needs and 68% of protein needs. Increase in goal rate is warranted. Current Diet Order/Nutrition Support: Nepro @30 mL/hr, free water flush 100 mL (frequency unspecified) via NGT x1 day Education Provided Not Indicated Pertinent Medications: morphine, cardizem, SSI, haldol, colace, D5% @50 mL/hr x20 hrs (provides 170 kcals/day) Pertinent Labs: N 134 L, BUN 88 H, Cr 4.33 H, BG 260 H, POC BG 256 H, Alb 1.9 L, WBC 46.4 H Height (Feet) 5 feet Height (Inches) 6.00 inches *NEW Weight (Pounds) 201 pounds 11/18 200#/90.7 kg 1# wt loss (11/28) 226#/102.7 kg 26# wt gain likely a/w fluid shifts r/t CKD Patient Weight 91.172 kg UBW 200-205# per significant other 11/24 Body Mass Index 32.44 kg/m2 %IBW 142 [place]/Adjusted Body Weight 142#/64.5 kg; adj. BW: 156#/71.3 kg Recent Weight Change No - unable to verify Weight Status Obese Usual Diet At Home unable to verify (*ongoing) Estimated Energy Expenditure (kcals/day) 9292-9993 kcals/day (30-35 kcals/kg Adj. IBW d/t obesity and sepsis) (*ongoing) Estimated Protein Required (g/day) 85-107 g/day (1.2-1.5 g/kg Adj. IBW d/t obesity, sepsis and CKD/HD) (*ongoing) Estimated Fluid Required (l/day) Per seasonal greenery bundler d/t CKD and CHF Problem/Etiology/Signs/Symptoms Altered nutrition-related labs R/T renal dysfunction AEB abnormal Na, BUN, and Cr lab values. *Ongoing Increased nutritional needs R/T metabolic demands AEB estimated nutritional requirements for sepsis. *Ongoing Swallowing difficulty R/T unknown etiology AEB significant other report. *RN reported no chewing/swallowing issues 11/26 Expected Outcomes/Goals Monitor tolerance of intake w/ goal of pt meeting greater than 80% of estimated needs, labs trending WNL, normal GI function, skin integrity, wt maintenance. Dietitian Recommendations * Increase goal rate: Nepro @ 50 mL/hr, free water flush per MD Provides: 2160 kcals/day, 97 g protein/day and 872 mL free water/day Meets: 101% of kcals needs and 91% of upper protein needs Follow Up High Risk: F/U in 2-3 days Signed: 11/29/21 at 1414 by Karrie OWUSU <Co-Signature Required> Co-Signed: 11/29/21 at [address]
--- NOTE | 2021-11-29 14:15 | NUR ---
Dietitian Recommendations Dietitian Recommendations * Increase goal rate: Nepro @ 50 mL/hr, free water flush per MD Provides: 2160 kcals/day, 97 g protein/day and 872 mL free water/day Meets: 101% of kcals needs and 91% of upper protein needs Please refer to nutrition f/u for details. Signed: 11/29/21 at 1415 by Karrie OWUSU <Co-Signature Required> Co-Signed: 11/29/21 at [address]
[2021-11-29] MEDS: MICAFUNGIN SODIUM 100 MG in NS 100 ML IV SCH (14:30)
[2021-11-29] MEDS: VANCOMYCIN HCL ORAL SOLUTION 125 MG/5 ML, 150 ML PO SCH ×3 (14:34→21:20)
--- NOTE | 2021-11-29 16:30 | NUR ---
1630 CALLED TO ICU4, PT FOUND FISH GULPING. STARTED BAGGING PT,PULSE FAINT, CODE BLUE CALLED. INTUBATED AND PT PLACED ON VENT. ROSC ACHEIVED. ABG IN 20 MIN. Addendum: 11/29/21 at 1800 by Martha Shaffer RT Amended: Links added.
--- NOTE | 2021-11-29 16:30 | NUR ---
Patient became unresponsive with agonal breathing during Hemodialysis. Patient assisted with breathing via BVM. Kristina Cruz called immediately at 1620 with loss of pulses. ROSC achieved at 1427 with MD at bedside intubating patient. Patient placed on Mechanical Ventilation for breathing support. Continue to monitor.
[2021-11-29] MEDS ORDERED: PROPOFOL DRIP 100 ML IV ONE (16:31)
--- NOTE | 2021-11-29 17:56 | NUR ---
Called Dr. Wallace regarding critical values. New order received Addendum: 11/29/21 at 2153 by Cordelia Lopez RN 1945 not 174
--- NOTE | 2021-11-29 19:15 | NUR ---
Opening notes Received report from endorsing morning SHENA Gurrola for continuity of care. Patient is lying in bed in no signs of distress, newly intubated with no sedation. Patient has IVF D5 1/2 NS @ 50 mL/hr, and levophed @ 0.18 mcg/kg/min. Patient's vital signs blood pressure 109/74, heart rate 122, respirations 24, and SPO2 99% on ventilator. Vent settings AC 16, tidal volume 450, FIO2 100%, and peep of 5. Plascencia catheter is in place draining to gravity. Bed is locked and in lowest position, call light button within reach, fall and safety precautions is in place.
[2021-11-29] MEDS ORDERED: NORMAL SALINE 10 ML VIAL IVP ONE (19:17)
[2021-11-29] MEDS ORDERED: CALCIUM CHLORIDE 1 GM/10 ML DISP.SYRIN (14 mEq Ca++/SYR) IV ONE (19:17)
[2021-11-29] MEDS ORDERED: EPINEPHrine JECT 0.1 MG/ML SYR IVP ONE (19:17)
[2021-11-29] MEDS ORDERED: SODIUM BICARBONATE 8.4% JECT 50 MEQ/50 ML SYRINGE IVP ONE (19:17)
[2021-11-29 19:39] LABS: MEAN CORPUSCULAR HEMOGLOBIN 29 pg (27-31); MEAN CORPUSCULAR HGB CONC 32 % (32-36); MEAN CORPUSCULAR VOLUME 90 fL (79.0-98.0); PLATELET COUNT (AUTO) 50 K/uL (130-430); RED BLOOD CELL COUNT(AUTO) 2.34 MIL/uL (4.2-6.2); RED CELL DISTRIBUTION WIDTH 24.4 % (9.0-15.0)
[2021-11-29 19:44] LABS: ANION GAP 16 (5-15); CHLORIDE 100 mmol/L (98-107); CREATININE 4.56 mg/dL (0.55-1.30); GLUCOSE 309 mg/dL (70-99); POTASSIUM 4.7 mmol/L (3.5-5.1); SODIUM SERUM 135 mmol/L (136-145); UREA NITROGEN, BLOOD 90 mg/dL (8-21)
--- NOTE | 2021-11-29 19:48 | NUR ---
Critical Value Received a call from Dieudonne at 1948 regarding a critical value Calcium 6.6 Received a call from Rin at 1949 regarding a critical value WBC 44, Hgb 6.7, Hct 21.1, Platelet 50. Called Dr. Wallace at 1955 to report critical value. New order given.
[2021-11-29 19:49] LABS: CALCIUM 6.6 mg/dL (8.4-11.0)
[2021-11-29 19:52] LABS: ALANINE AMINOTRANSFERASE 69 U/L (12-78); ALBUMIN 1.6 g/dL (3.4-4.8); ASPARTATE AMINOTRANSFERASE 100 U/L (10-37); TOTAL BILIRUBIN 6.5 mg/dL (0.0-1.0)
[2021-11-29 19:53] LABS: HEMOGLOBIN 6.7 g/dL (14.0-18.0)
[2021-11-29 19:55] LABS: HEMATOCRIT 21.1 % (36-54)
[2021-11-29] MEDS ORDERED: CALCIUM GLUCONATE 1 GM in NS 100 ML IV ONE (20:00)
[2021-11-29] MEDS ORDERED: CALCIUM GLUCONATE 1 GM/10 ML VIAL ONE (20:31)
--- NOTE | 2021-11-29 22:24 | NUR ---
MD Dr. Askew is in the unit rounding on patient, gave verbal report. New order given; Dr. Askew will put in the order.
[2021-11-29 22:59] LABS: BAND % (MANUAL) 1 % (0-6); BASOPHILS % (MANUAL) 0 % (0-2); EOSINOPHILS % (MANUAL) 0 % (0-7); LYMPHOCYTES % (MANUAL) 1 % (20-46); MONOCYTES % (MANUAL) 4 % (0-11)
[2021-11-30] VITALS (32 sets, daily range): BP systolic 68–149
[2021-11-30] MEDS: PIPERACILLIN/TAZO 2.25G/DEX-IS 50 ML IV SCH ×4 (00:30→17:37)
[2021-11-30] MEDS: metroNIDAZOLE 250 mg/NS 50 ML IV SCH ×3 (00:30→15:31)
[2021-11-30] MEDS ORDERED: NOREPINEPHRINE 4 MG/4 ML VIAL IV ONE (06:10)
[2021-11-30 06:42] LABS: BASOPHILS # (AUTO) 0.1 K/uL (0.0-0.2); BASOPHILS % (AUTO) 0.3 % (0.0-2.0); EOSINOPHILS % (AUTO) 0.1 % (0.0-4.0); HEMATOCRIT 25.6 % (36-54); HEMOGLOBIN 8.3 g/dL (14.0-18.0); LYMPHOCYTES # (AUTO) 0.7 K/uL (1.0-5.5); MEAN CORPUSCULAR HEMOGLOBIN 29 pg (27-31); MEAN CORPUSCULAR HGB CONC 33 % (32-36); MEAN CORPUSCULAR VOLUME 90 fL (79.0-98.0); MONOCYTES # (AUTO) 1.5 K/uL (0.0-1.0); MONOCYTES % (AUTO) 4.3 % (1.7-9.3); NEUTROPHILS # (AUTO) 33.1 K/uL (1.8-7.7); NEUTROPHILS % (AUTO) 93.3 % (40.0-70.0); RED BLOOD CELL COUNT(AUTO) 2.85 MIL/uL (4.2-6.2)
[2021-11-30] MEDS: NOREPINEPHRINE BITARTRATE 8 MG in NS 242 ML IV PRN (06:46)
[2021-11-30] MEDS: INSULIN LISPRO SLIDING SCALE 100 UNITS/ML VIAL (humaLOG) SUBCUT PRN ×3 (06:47→17:48)
[2021-11-30] MEDS: D5/0.45 NS 1,000 ML IV SCH (07:30)
[2021-11-30 07:44] LABS: ALANINE AMINOTRANSFERASE 63 U/L (12-78); ALBUMIN 1.6 g/dL (3.4-4.8); ANION GAP 17 (5-15); ASPARTATE AMINOTRANSFERASE 78 U/L (10-37); CHLORIDE 100 mmol/L (98-107); GLUCOSE 284 mg/dL (70-99); POTASSIUM 4.8 mmol/L (3.5-5.1); SODIUM SERUM 136 mmol/L (136-145)
--- NOTE | 2021-11-30 08:30 | NUR ---
critical labs today which are showing improvement from day prior. Today's critical lab: PLT 53, WBC 35.5
[2021-11-30 08:33] LABS: PLATELET COUNT (AUTO) 53 K/uL (130-430); WHITE BLOOD COUNT (AUTO) 35.5 K/uL (4.8-10.8)
[2021-11-30 08:34] LABS: TOTAL BILIRUBIN 6.9 mg/dL (0.0-1.0); UREA NITROGEN, BLOOD 98 mg/dL (8-21)
[2021-11-30] MEDS: METOPROLOL SUCCINATE 50 MG TAB.SR.24H (TOPROL XL) PO SCH ×2 (08:51→21:00)
[2021-11-30] MEDS: DILTIAZEM HCL 30 MG TABLET PO SCH ×3 (09:40→21:00)
[2021-11-30] MEDS: MIDODRINE HCL 5 MG TABLET (PROAMATINE) PO SCH ×3 (09:40→21:00)
[2021-11-30] MEDS: VANCOMYCIN HCL ORAL SOLUTION 125 MG/5 ML, 150 ML PO SCH ×4 (10:43→21:00)
[2021-11-30] MEDS: MICAFUNGIN SODIUM 100 MG in NS 100 ML IV SCH (13:01)
[2021-11-30] MEDS: DEXAMETHASONE SOD PHOSPHATE 4 MG/ML VIAL IVP SCH (17:36)
[2021-11-30] MEDS: EPOETIN ALFA 10,000 UNITS/ML VIAL SUBCUT SCH (17:37)
[2021-11-30] MEDS: FAMOTIDINE PF 20 MG/2 ML VIAL IVP SCH (21:00)
[2021-11-30] MEDS ORDERED: INSULIN GLARGINE 100 UNITS/ML 10 ML VIAL SUBCUT SCH (21:00)
[2021-12-01] VITALS (33 sets, daily range): BP systolic 91–152
[2021-12-01] MEDS: metroNIDAZOLE 250 mg/NS 50 ML IV SCH ×3 (00:18→16:00)
[2021-12-01] MEDS: DEXAMETHASONE SOD PHOSPHATE 4 MG/ML VIAL IVP SCH ×4 (00:19→19:21)
[2021-12-01] MEDS: PIPERACILLIN/TAZO 2.25G/DEX-IS 50 ML IV SCH ×3 (00:19→13:50)
[2021-12-01] MEDS: INSULIN LISPRO SLIDING SCALE 100 UNITS/ML VIAL (humaLOG) SUBCUT PRN ×4 (00:27→19:20)
[2021-12-01 06:04] LABS: ALANINE AMINOTRANSFERASE 51 U/L (12-78); ALBUMIN 1.3 g/dL (3.4-4.8); ANION GAP 16 (5-15); ASPARTATE AMINOTRANSFERASE 50 U/L (10-37); CHLORIDE 101 mmol/L (98-107); CREATININE 5.43 mg/dL (0.55-1.30); GLUCOSE 309 mg/dL (70-99); POTASSIUM 4.8 mmol/L (3.5-5.1); SODIUM SERUM 136 mmol/L (136-145); TOTAL BILIRUBIN 7.5 mg/dL (0.0-1.0)
[2021-12-01 06:31] LABS: UREA NITROGEN, BLOOD 111 mg/dL (8-21)
[2021-12-01 06:47] LABS: CALCIUM 6.9 mg/dL (8.4-11.0)
[2021-12-01 07:01] LABS: INR 1.4 (0.80-1.20); PROTHROMBIN TIME 14.1 SECS (9.5-12.5)
[2021-12-01 07:10] LABS: BASOPHILS # (AUTO) 0.1 K/uL (0.0-0.2); BASOPHILS % (AUTO) 0.4 % (0.0-2.0); HEMATOCRIT 23.6 % (36-54); HEMOGLOBIN 7.7 g/dL (14.0-18.0); LYMPHOCYTES # (AUTO) 0.4 K/uL (1.0-5.5); LYMPHOCYTES % (AUTO) 1.4 % (20.5-51.5); MEAN CORPUSCULAR HEMOGLOBIN 30 pg (27-31); MEAN CORPUSCULAR HGB CONC 33 % (32-36); MEAN CORPUSCULAR VOLUME 92 fL (79.0-98.0); MONOCYTES # (AUTO) 0.4 K/uL (0.0-1.0); MONOCYTES % (AUTO) 1.6 % (1.7-9.3); PLATELET COUNT (AUTO) 71 K/uL (130-430); RED BLOOD CELL COUNT(AUTO) 2.57 MIL/uL (4.2-6.2); RED CELL DISTRIBUTION WIDTH 23.1 % (9.0-15.0); WHITE BLOOD COUNT (AUTO) 24.9 K/uL (4.8-10.8)
--- NOTE | 2021-12-01 07:30 | NUR ---
DR LARIOS A BEDSIDE. DISCUSSED STOOL SENT OF FOR OCCULT BLOOD ON PREVIOUS SHIFT. SUGGESTED INSERTING RECAL TUBE TO PREVENT SKIN BREAK DOWN DUE TO LOOSE, DARK STOOLS.
[2021-12-01 08:54] LABS: NEUTROPHILS % (AUTO) 96.6 % (40.0-70.0)
--- NOTE | 2021-12-01 08:56 | NUR ---
SPOKE WITH DR LARIOS AND NOTIFIED OF STOOL BEING POSITIVE FOR OCCULT BLOOD, AND STATED WILL NOTIFY IF THE HEMOGLOBIN AND HEMATOCRIT ARE CRITICALLY LOW TODAY, CHECKED LABS NOW AND THEY ARE NOT CRITICAL. DUE TO STOOL BEING LOOSE DR LARIOS ORDERED TO HAVE STOOL CHECKED FOR C-DIF.
[2021-12-01] MEDS: METOPROLOL SUCCINATE 50 MG TAB.SR.24H (TOPROL XL) PO SCH ×2 (09:00→21:00)
[2021-12-01] MEDS: DILTIAZEM HCL 30 MG TABLET PO SCH ×3 (09:00→21:37)
[2021-12-01] MEDS: MIDODRINE HCL 5 MG TABLET (PROAMATINE) PO SCH (09:01)
[2021-12-01] MEDS: FAMOTIDINE PF 20 MG/2 ML VIAL IVP SCH ×2 (09:01→21:33)
[2021-12-01] MEDS ORDERED: ALBUMIN HUMAN 25% 200 ML IV ONE ×2 (09:45→17:00)
[2021-12-01] MEDS ORDERED: MIDODRINE HCL 5 MG TABLET (PROAMATINE) PO SCH (10:15)
[2021-12-01] MEDS: VANCOMYCIN HCL ORAL SOLUTION 125 MG/5 ML, 150 ML PO SCH ×4 (10:20→21:37)
[2021-12-01] MEDS ORDERED: CALCIUM GLUCONATE 1 GM in NS 100 ML IV ONE (12:00)
--- NOTE | 2021-12-01 12:10 | NUR ---
SPOKE WITH FAMILY. FAMILY STATED PT WANTED TO NOT RECEIVE DIALYSIS AND WITHDRAWAL CARE. PT IS A&Ox4. HE WAS SHAKING HIS HEAD YES OR NO WHEN ANSWERING QUESTIONS. I EXPLAINED RISKS AND BENEFITS OF DIALYSIS. ADVISED PT HE WILL WITHOUT RECEIVING DIALYSIS DUE TO ACUTE RENAL FAILURE AND FLUID OVERLOAD. I ASKED PT AGAIN IF HE WANTED DIALYSIS AND HE SHOOK HIS HEAD NO. DR SHER REECE.
--- NOTE | 2021-12-01 12:41 | NUR ---
SPOKE WITH DR OLIVAREZ ADVISED THAT PT NOW WANTS TO CHANGE CODE STATUS TO DNR AND IS REFUSING DIALYSIS. HE STATED TO PAGE DR YUEN AND DR HOWARD. RECOMMENDS HAVING DR HOWARD SPEAK WITH FAMILY AND PT IN PERSON. DR YUEN AND DR HOWARD PAGED.
--- NOTE | 2021-12-01 12:50 | NUR ---
SPOKE WITH DR YUEN NOTIFIED DR YUEN REGARDING PT'S DECISION TO REFUSE DIALYSIS AND TO BECOME A DNR. DR YUEN ORDERED TO CANCEL DIALYSIS, ALBUMIN, AND MIDODRINE.
[2021-12-01] MEDS: MORPHINE 2 MG/ML INJ. SYRINGE IVP PRN (13:50)
--- NOTE | 2021-12-01 14:30 | NUR ---
patient and family refused blood transfusion because they want to place comfort measures once the daughter arrives.
[2021-12-01] MEDS: MICAFUNGIN SODIUM 100 MG in NS 100 ML IV SCH (15:04)
--- NOTE | 2021-12-01 15:25 | NUR ---
rectal tube inserted, lubricant applied, ensured properfuntioning of balloon prior to insertion, pericare provided before and after, patient full bed bath given after and cleaned with chg wipes, patient tolerated well. Addendum: 12/01/21 at 1545 by Elizabeth Banks RN note nola Putnam 12/01/21
--- NOTE | 2021-12-01 15:46 | NUR ---
daughter called primary nurse to discuss outside of the room that the patient is now wanting to be a full code. went into room and assessed patients orientation by asking yes or no questions, patient is a/ox4, when asked if he wants to continue care he stated hes, in addition he stated yes to dialysis, blood transfusion, ventilator, medications, and stated he wants to be a full code. paged Dr Schulz, awaiting call back.
--- NOTE | 2021-12-01 16:43 | NUR ---
spoke with dr cox over the phone, notified her that the patient is deciding to be a full code and wants all care measures performed including but not limited to blood transfusion, dialysis, ventilator, and vasopressors. she stated to order for him to be full code again. spoke with dr pichardo and discussed how patient is a full code again, explained how education was performed and he was asked orientation questions using yes or no questions and he was able to answer correctly and stated he wanted to be a full code. discussed plan of care with family and they want to do whatever the patient wants, dr pichardo ordered to do dialysis and give idodrine and albumin prior to dialysis as ordered earlier but also voiced concern of patient risk of dialysis including code, stated will explain again to patient the risk a discussed before with dr pichardo. notified sebastian the house moving supervisor and he is arranging dialysis.
[2021-12-01] MEDS ORDERED: MIDODRINE HCL 5 MG TABLET (PROAMATINE) PO ONE (17:00)
--- NOTE | 2021-12-01 17:21 | NUR ---
patient is getting dialysis, iv flagyl and zosyn being held until dialysis is finished.
--- NOTE | 2021-12-01 17:54 | NUR ---
BLOOD TRANSFUSION OF 1UNIT PRBC STARTED WITH DIALYSIS. SECOND NURSE CHECKED, WILL MONITOR FOR REACTION.
[2021-12-02] VITALS (33 sets, daily range): BP systolic 90–145
[2021-12-02] MEDS: DEXAMETHASONE SOD PHOSPHATE 4 MG/ML VIAL IVP SCH ×4 (01:10→17:39)
[2021-12-02] MEDS: metroNIDAZOLE 250 mg/NS 50 ML IV SCH ×3 (01:12→16:00)
[2021-12-02] MEDS: PIPERACILLIN/TAZO 2.25G/DEX-IS 50 ML IV SCH (01:12)
[2021-12-02 06:43] LABS: ALANINE AMINOTRANSFERASE 37 U/L (12-78); ALBUMIN 2.3 g/dL (3.4-4.8); ANION GAP 16 (5-15); ASPARTATE AMINOTRANSFERASE 30 U/L (10-37); CALCIUM 7.1 mg/dL (8.4-11.0); CHLORIDE 100 mmol/L (98-107); CREATININE 4.41 mg/dL (0.55-1.30); GLUCOSE 261 mg/dL (70-99); POTASSIUM 3.9 mmol/L (3.5-5.1); SODIUM SERUM 137 mmol/L (136-145); TOTAL BILIRUBIN 8.9 mg/dL (0.0-1.0); UREA NITROGEN, BLOOD 83 mg/dL (8-21)
[2021-12-02] MEDS: INSULIN LISPRO SLIDING SCALE 100 UNITS/ML VIAL (humaLOG) SUBCUT PRN ×3 (06:48→18:03)
[2021-12-02 06:49] LABS: BASOPHILS % (AUTO) 0.1 % (0.0-2.0); HEMATOCRIT 22.8 % (36-54); HEMOGLOBIN 7.5 g/dL (14.0-18.0); LYMPHOCYTES # (AUTO) 0.5 K/uL (1.0-5.5); LYMPHOCYTES % (AUTO) 3.3 % (20.5-51.5); MEAN CORPUSCULAR HEMOGLOBIN 30 pg (27-31); MEAN CORPUSCULAR HGB CONC 33 % (32-36); MEAN CORPUSCULAR VOLUME 91 fL (79.0-98.0); MONOCYTES # (AUTO) 0.4 K/uL (0.0-1.0); MONOCYTES % (AUTO) 2.5 % (1.7-9.3); NEUTROPHILS # (AUTO) 14.9 K/uL (1.8-7.7); RED BLOOD CELL COUNT(AUTO) 2.51 MIL/uL (4.2-6.2); RED CELL DISTRIBUTION WIDTH 20.2 % (9.0-15.0); WHITE BLOOD COUNT (AUTO) 15.9 K/uL (4.8-10.8)
--- NOTE | 2021-12-02 07:18 | NUR ---
OPENING NOTE: REPORT RC'VD FROM OUTGOING NOC RN, ALL CARES ASSUMED. (SHENA FINE)
[2021-12-02 07:20] LABS: INR 1.5 (0.80-1.20); PROTHROMBIN TIME 14.9 SECS (9.5-12.5)
--- NOTE | 2021-12-02 08:00 | NUR ---
DR. LARIOS AT BEDSIDE, REPORT GIVEN, TO REVIEW CHART, NO NEW ORDERS AT THIS TIME.
--- NOTE | 2021-12-02 08:04 | NUR ---
DR. ROA AT BEDSIDE, VERBAL REPORT GIVEN, NO NEW ORDERS.
[2021-12-02] MEDS: DILTIAZEM HCL 30 MG TABLET PO SCH ×3 (08:41→20:45)
[2021-12-02] MEDS: FAMOTIDINE PF 20 MG/2 ML VIAL IVP SCH ×2 (08:42→20:44)
[2021-12-02] MEDS: METOPROLOL SUCCINATE 50 MG TAB.SR.24H (TOPROL XL) PO SCH ×2 (08:42→20:46)
[2021-12-02] MEDS: VANCOMYCIN HCL ORAL SOLUTION 125 MG/5 ML, 150 ML PO SCH ×4 (08:43→20:46)
[2021-12-02] MEDS: NOREPINEPHRINE BITARTRATE 8 MG in NS 242 ML IV PRN (08:44)
--- NOTE | 2021-12-02 08:56 | NUR ---
DAUGHTER AT BEDSIDE, ALL QUESTIONS ANSWERED AT THIS TIME.
[2021-12-02] MEDS: MORPHINE 2 MG/ML INJ. SYRINGE IVP PRN ×2 (10:34→18:14)
--- NOTE | 2021-12-02 10:37 | NUR ---
DR. HOWARD MAKING ROUNDS, BEDSIDE REPORT GIVEN.
--- NOTE | 2021-12-02 10:40 | NUR ---
MORPHINE 2MG GIVEN IVP FOR PAIN 10/10 RO RIGHT SHOULDER.
[2021-12-02 11:13] LABS: PLATELET COUNT (AUTO) 25 K/uL (130-430)
[2021-12-02 11:14] LABS: NEUTROPHILS % (AUTO) 94.1 % (40.0-70.0)
--- NOTE | 2021-12-02 11:38 | NUR ---
Risk Control Product Liability Director After ICU bed rounds, MOISTURE METER READER was asked to meet with patient and family re. pts. code status. Pt has changed his mind on 12/01/21 to become a DNR. Later in the day, pt. changed his mind again to be a Full Code. MOISTURE METER READER will confirm this status during this [id number] contact with patient. MOISTURE METER READER checked in with Katlyn who confirmed pt. has changed his mind and wants to be a Full Code. Additionally, Katlyn stated patient is doing better and may be taken off the vent tomorrow. MOISTURE METER READER met with patient and two daughters, Amilcar Martínez ([place]) and daughter, Tulio Tan ([place]). MOISTURE METER READER introduced self to everyone. Patient was awake, still on a vent, but able to respond by shaking his head. MOISTURE METER READER asked patient if he wanted to be a Full Code status, all life sustaining measures are to be made. Patient replied in the presence of MOISTURE METER READER and both daughters, by nodding his head yes. both daughters feel pt. is getting good care and are happy with his progress. Daughters did not have any questions or concerns. MOISTURE METER READER spoke to Rn.Obdulia to review this information with her. Rn. Romy Gambino will notify Valentine Potts who was with another patient. MOISTURE METER READER will remain available as needed.
--- NOTE | 2021-12-02 11:55 | NUR ---
2 UNITS OF PRBC UNITS ORDERED PER MD HOWARD
--- NOTE | 2021-12-02 11:56 | NUR ---
DR. LEE REECE, PENDING RETURN CALL.
--- NOTE | 2021-12-02 11:58 | NUR ---
CRITICAL LAB: MARCIN from Laboratory called with critical lab value, Medical record number and patient name verified. Read back of values done. DR. HOWARD notified of value. No new orders given at this time.
--- NOTE | 2021-12-02 13:05 | NUR ---
DR. ADKINS AT BEDSIDE, REPORT GIVEN, TO REVIEW CHART AND PLACE NEW ORDERS.
[2021-12-02 13:10] LABS: INR 1.5 (0.80-1.20)
--- NOTE | 2021-12-02 13:20 | NUR ---
1 UNIT OF PRBC TRANSFUSION STARTED, MONITORING FOR ADVERSE REACTION. VITALS STABLE AT THIS TIME, AFEBRILE.
--- NOTE | 2021-12-02 13:54 | NUR ---
PER MD HOWARD / D/C REDDY CATHETER.
--- NOTE | 2021-12-02 14:00 | NUR ---
REDDY D/C PER MD ORDER, PT TOLERATED WELL.
--- NOTE | 2021-12-02 15:15 | NUR ---
Nutrition F/U Admitting Diagnosis Sepsis, acute embolism and thrombosis of unspecified vein Medical History Comment: Multiple MIs w/ cardiac stent placement, CABG, DM, HTN, BPH, CKD stage III, kidney stones w/ lithotripsy, gout. Pt also found w/ CHF, metabolic encephalopathy, severe malnutrition, elevated troponins, and CAD. SARS-CoV-2 Ag (Rapid) Negative 11/14, Hep C pending 11/14 Subjective Information: RD attended ICU rounds this morning -- primary RN reported that pt has been tolerating TF Glucerna 1.2 at 30 ml/hr -- RD relayed current TF order is for 40 ml/hr. Later today, RD rounded to pt's bedside and witnessed TF infusing Glucerna 1.2 at 30 ml/hr w/ 36 ml infused (43 kcal). Pt's daughters were present at bedside. RD inquired about pt's UBW -- family was unsure. Bedscale wt taken: 238# -- may be skewed d/t fluid shifts r/t CKD. Primary RN was on lunch break during RD rounds to ICU this afternoon. Per EMR review, pt has been intubated since 11/29; pt was switched from Nepro to Glucerna 1.2 d/t high GRV 11/29-11/30; TF Formula Type: Glucerna 1.2 12/02; TF Rate: 0 ml /; TF Intakes: 300 ml 12/02; +flexiseal w/ stool output: 100 ml 12/02; hypoactive bowel sounds noted; Eric scale: 10, jaundiced and lower sacrum w/ erythema. Pt is not yet meeting optimal nutritional needs. Current Diet Order/Nutrition Support: Glucerna 1.2 at 40 ml/hr, Free Water Flush: per MD via NGT Education Provided Not Indicated Pertinent Medications: pepcid, lantus, decadron, SSI, morphine, haldol, colace Pertinent Labs: Na 137 WNL, BUN 83 H, CRE 4.41 H, BG 261 H, POC BG 281 H, ALB 2.3 L, WBC 15.9 H Height (Feet) 5 feet Height (Inches) 6.00 inches *NEW Weight (Pounds) 201 pounds 11/18 200#/90.7 kg 1# wt loss (11/28) 226#/102.7 kg 26# wt gain likely a/w fluid shifts r/t CKD BEDSCALE WT: 238# (12/02) Patient Weight 91.172 kg UBW 200-205# per significant other 11/24 Body Mass Index 32.44 kg/m2 %IBW 142 [place]/Adjusted Body Weight 142#/64.5 kg; adj. BW: 156#/71.3 kg Recent Weight Change No - unable to verify Weight Status Obese Usual Diet At Home unable to verify NEW Estimated Energy Expenditure (kcals/day) 1789 (PSU 2009 d/t critical illness, recently intubated; Ve: 8.5, Tmax: 36.7'C) Estimated Protein Required (g/day) 85-107 (1.2-1.5 g/kg Adj. IBW d/t obesity, sepsis and CKD/HD) Estimated Fluid Required (l/day) Per caster investment casting d/t CKD and CHF Problem/Etiology/Signs/Symptoms Altered nutrition-related labs R/T renal dysfunction AEB abnormal Na, BUN, and Cr lab values. *Ongoing Increased nutritional needs R/T metabolic demands AEB estimated nutritional requirements for sepsis. *Ongoing Swallowing difficulty R/T unknown etiology AEB significant other report. *RN reported no chewing/swallowing issues 11/26 Expected Outcomes/Goals Monitor tolerance of intake w/ goal of pt meeting greater than 80% of estimated needs, labs trending WNL, normal GI function, skin integrity, wt maintenance. Dietitian Recommendations * Glucerna 1.2 at 60 ml/hr (goal rate), Free Water Flush: per MD via NGT Provides: 1728 kcal/day, 86 gm protein/day, and 1159 ml free water/day Meets: 97% of estimated caloric needs and 101% of lower end of estimated protein needs Follow Up High Risk: F/U in 2-3 days
--- NOTE | 2021-12-02 15:25 | NUR ---
Dietitian Recommendations * Glucerna 1.2 at 60 ml/hr (goal rate), Free Water Flush: per MD via NGT Provides: 1728 kcal/day, 86 gm protein/day, and 1159 ml free water/day Meets: 97% of estimated caloric needs and 101% of lower end of estimated protein needs LP, RD Please refer to Nutrition F/U for details.
--- NOTE | 2021-12-02 17:35 | NUR ---
Wound Evaluation: Wound Consult ordered for Low Eric Score. Patient evaluated for a low Eric score of 12. Patient had eyes closed, nonverbal, opens eyes to verbal communication and his name, and received in a [facility] Bed with an Isoflex JAYCOB mattress with low air loss therapy initiated. Patient needs to be turned in bed. Skin assessment: 1. Sacral/Buttocks areas: Blanchable red erythema from IAD. Recommend: Cleanse involved areas with mild soap and water. Pat dry. Apply Calmoseptine cream to involved areas. Perform site care 4 times daily and as needed for soiling. Also recommend: Reposition patient side to side only every 2 hours with 1 pillow underneath trunk and 1 pillow underneath pelvis bilaterally. Initiate turning by placing an additional pillow underneath left side for 2 hours and rotate to right side for 2 hours, repeat bilaterally every 2 hours. Elevate, off-load and float bilateral heels with 1 pillow extremity at all. Offload pressure areas with pillows for pressure re-distribution. Perform skin care and monitor skin integrity Q shift. Use Calmoseptine cream on moisture susceptible areas QID and PRN for soiling. Place patient on a P500 low air-loss mattress.
[2021-12-02] MEDS: EPOETIN ALFA 10,000 UNITS/ML VIAL SUBCUT SCH (17:37)
[2021-12-02] MEDS ORDERED: PHYTONADIONE 10 MG in NS 50 ML IV ONE (17:45)
--- NOTE | 2021-12-02 18:04 | NUR ---
2ND UNIT OF PRBC TRANSFUSION STARTED, MONITORING FOR ADVERSE REACTION. VITALS STABLE AT THIS TIME, AFEBRILE.
--- NOTE | 2021-12-02 18:10 | NUR ---
MORPHINE 2MG GIVEN IVP FOR PAIN 05/08
[2021-12-02] MEDS ORDERED: MENTHOL/ZINC OXIDE 113 GM OINT. TP PRN (18:45)
--- NOTE | 2021-12-02 19:04 | NUR ---
DOMINGA AT BEDSIDE WITH DAUGHTERS, ALL UPDATES GIVEN AND ALL QUESTIONS ANSWERED.
--- NOTE | 2021-12-02 19:04 | NUR ---
STOOL CULTURE COLLECTED PER ORDER AND BROUGHT TO LAB
--- NOTE | 2021-12-02 19:05 | NUR ---
CLOSING NOTE: REPORT GIVEN AT BEDSIDE TO INCOMING NOC RN, ALL CARES ENDORSED.
[2021-12-02] MEDS: MEROPENEM 500 MG in NS 50 ML IV SCH (20:44)
[2021-12-03] VITALS (34 sets, daily range): BP systolic 113–193
[2021-12-03] MEDS: metroNIDAZOLE 250 mg/NS 50 ML IV SCH ×3 (00:17→16:42)
[2021-12-03] MEDS: DEXAMETHASONE SOD PHOSPHATE 4 MG/ML VIAL IVP SCH ×4 (00:42→17:39)
[2021-12-03] MEDS: INSULIN GLARGINE 100 UNITS/ML 10 ML VIAL SUBCUT SCH ×2 (00:44→20:05)
[2021-12-03] MEDS: INSULIN LISPRO SLIDING SCALE 100 UNITS/ML VIAL (humaLOG) SUBCUT PRN ×3 (00:46→11:59)
[2021-12-03 07:10] LABS: BASOPHILS % (AUTO) 0.1 % (0.0-2.0); HEMATOCRIT 32.3 % (36-54); HEMOGLOBIN 10.7 g/dL (14.0-18.0); LYMPHOCYTES # (AUTO) 0.3 K/uL (1.0-5.5); LYMPHOCYTES % (AUTO) 2.1 % (20.5-51.5); MEAN CORPUSCULAR HEMOGLOBIN 30 pg (27-31); MEAN CORPUSCULAR HGB CONC 33 % (32-36); MEAN CORPUSCULAR VOLUME 90 fL (79.0-98.0); MONOCYTES # (AUTO) 0.3 K/uL (0.0-1.0); MONOCYTES % (AUTO) 1.9 % (1.7-9.3); NEUTROPHILS # (AUTO) 13.3 K/uL (1.8-7.7); NEUTROPHILS % (AUTO) 95.9 % (40.0-70.0); RED BLOOD CELL COUNT(AUTO) 3.59 MIL/uL (4.2-6.2); RED CELL DISTRIBUTION WIDTH 17.4 % (9.0-15.0); WHITE BLOOD COUNT (AUTO) 13.8 K/uL (4.8-10.8)
[2021-12-03 07:28] LABS: INR 1.4 (0.80-1.20); PROTHROMBIN TIME 13.5 SECS (9.5-12.5)
--- NOTE | 2021-12-03 07:30 | NUR ---
Opening Received report on pt. Pt drowsy, no pain or distress at this time. Intubated on ventilator, currently on CPAP trial and tolerating well. NGT in place with tube feeding. Flexiseal in place with dark brown/black drainage. Noted weeping on right upper arm as well as pitting edema on both upper and lower extremities. Pt's Tigist Rodríguez at bedside.
[2021-12-03] MEDS: MEROPENEM 500 MG in NS 50 ML IV SCH ×2 (08:10→20:03)
[2021-12-03] MEDS: DILTIAZEM HCL 30 MG TABLET PO SCH ×3 (08:10→20:03)
[2021-12-03] MEDS: FAMOTIDINE PF 20 MG/2 ML VIAL IVP SCH ×2 (08:11→20:02)
[2021-12-03] MEDS: METOPROLOL SUCCINATE 50 MG TAB.SR.24H (TOPROL XL) PO SCH ×2 (08:11→20:03)
--- NOTE | 2021-12-03 08:11 | NUR ---
Nutrition Note RD received Nutrition Consult d/t Low Eric Score of 12 12/02/21 082. Pt was seen for Nutrition F/U yesterday, 12/03. Please refer to Nutrition F/U for details. RD to continue to follow as per nutrition care standards.
[2021-12-03] MEDS: VANCOMYCIN HCL ORAL SOLUTION 125 MG/5 ML, 150 ML PO SCH ×4 (08:12→20:03)
[2021-12-03] MEDS ORDERED: MIDODRINE HCL 5 MG TABLET (PROAMATINE) PO ONE (08:15)
[2021-12-03] MEDS ORDERED: ALBUMIN HUMAN 25% 200 ML IV ONE (08:15)
[2021-12-03 08:18] LABS: ALANINE AMINOTRANSFERASE 37 U/L (12-78); ANION GAP 15 (5-15); ASPARTATE AMINOTRANSFERASE 27 U/L (10-37); CHLORIDE 98 mmol/L (98-107); CREATININE 5.08 mg/dL (0.55-1.30); GLUCOSE 323 mg/dL (70-99); POTASSIUM 4.2 mmol/L (3.5-5.1); SODIUM SERUM 134 mmol/L (136-145); UREA NITROGEN, BLOOD 99 mg/dL (8-21)
[2021-12-03 08:25] LABS: PLATELET COUNT (AUTO) 28 K/uL (130-430)
--- NOTE | 2021-12-03 09:45 | NUR ---
[address] HOWARD. WEANING PARAMETERS POST DIALYSIS. RN AWARE. WILL CONT TO MONITOR. Addendum: 12/03/21 at 0946 by Martha Shaffer RT Amended: Links added.
--- NOTE | 2021-12-03 09:45 | NUR ---
Dr. Schulz rounding on pt, speaking with Anne and pt's daughters.
[2021-12-03 09:51] LABS: TOTAL BILIRUBIN 8.6 mg/dL (0.0-1.0)
--- NOTE | 2021-12-03 11:00 | NUR ---
CHG bath and linen change given to pt. Noted weeping on right upper arm and small yellow fluid filled blister. Replaced BP cuff and moved to left leg. Pt also more awake and following commands, able to make needs known. Prepared pt for dialysis and administered medications before dialysis per MD order.
--- NOTE | 2021-12-03 12:08 | NUR ---
1205 Placed patient back to for dialysis. Patient tolerating well. Will continue to monitor Addendum: 12/03/21 at 1209 by Martha Shaffer RT Amended: Links added.
--- NOTE | 2021-12-03 13:15 | NUR ---
Dialysis nurse at bedside for dialysis
--- NOTE | 2021-12-03 16:26 | NUR ---
Dialysis complete, 2900mL out. Pt tolerated well.
--- NOTE | 2021-12-03 16:48 | NUR ---
1633 PLACED PT BACK TO CPAP5 PS 8. NIF 20, 26, 25, RSBI 17. SPOKE WITH LEE. INSTRUCTED TO PLACE BACK TO AC AND DO CPAP AND WEANING PARAMETERS IN THE AM. WILL MONITOR, RN AWARE. Addendum: 12/03/21 at 1750 by Martha Shaffer RT Amended: Links added.
--- NOTE | 2021-12-03 17:30 | NUR ---
Placed pt on new ordered [facility] bed. Pt indicated no pain and no signs of distress noted. Pt tolerated well.
[2021-12-03] MEDS: MORPHINE 2 MG/ML INJ. SYRINGE IVP PRN (17:41)
--- NOTE | 2021-12-03 18:50 | NUR ---
Closing Pt remains intubated, able to follow commands and make needs known. Levophed drip off. NGT in place receiving tube feeding at 40 ml/hr, tolerating well. Flexiseal with 100 ml drainage of dark stool. Biliary drain with 40 ml output, insignificant amount of leakage noted from site but controlled, no additional leakage noted, Dr. Taylor aware. Pt's daughters and Anne present at bedside updated with plan of care.
--- NOTE | 2021-12-03 21:04 | NUR ---
Dr. Sommer returned call, informed about pt's BP remaining elevated despite interventions after dialysis. New orders made for hydralazine PRN.
[2021-12-03] MEDS ORDERED: hydrALAZINE HCL 20 MG/ML VIAL IVP PRN (21:15)
--- NOTE | 2021-12-03 21:42 | NUR ---
Endorsed plan of care to Alena CHATTERJEE
[2021-12-04] VITALS (42 sets, daily range): BP systolic 105–195
[2021-12-04] MEDS: DEXAMETHASONE SOD PHOSPHATE 4 MG/ML VIAL IVP SCH ×5 (00:41→23:51)
[2021-12-04] MEDS: metroNIDAZOLE 250 mg/NS 50 ML IV SCH ×4 (00:42→23:51)
[2021-12-04] MEDS: INSULIN LISPRO SLIDING SCALE 100 UNITS/ML VIAL (humaLOG) SUBCUT PRN ×5 (00:59→23:53)
[2021-12-04 06:43] LABS: BASOPHILS % (AUTO) 0.1 % (0.0-2.0); HEMATOCRIT 33.3 % (36-54); HEMOGLOBIN 11.1 g/dL (14.0-18.0); LYMPHOCYTES # (AUTO) 0.3 K/uL (1.0-5.5); LYMPHOCYTES % (AUTO) 2.5 % (20.5-51.5); MEAN CORPUSCULAR HEMOGLOBIN 30 pg (27-31); MEAN CORPUSCULAR HGB CONC 33 % (32-36); MEAN CORPUSCULAR VOLUME 90 fL (79.0-98.0); MONOCYTES # (AUTO) 0.2 K/uL (0.0-1.0); MONOCYTES % (AUTO) 2.2 % (1.7-9.3); NEUTROPHILS # (AUTO) 9.9 K/uL (1.8-7.7); NEUTROPHILS % (AUTO) 95.2 % (40.0-70.0); RED BLOOD CELL COUNT(AUTO) 3.72 MIL/uL (4.2-6.2); RED CELL DISTRIBUTION WIDTH 18.4 % (9.0-15.0); WHITE BLOOD COUNT (AUTO) 10.4 K/uL (4.8-10.8)
[2021-12-04 07:20] LABS: PLATELET COUNT (AUTO) 26 K/uL (130-430)
[2021-12-04 07:25] LABS: INR 1.4 (0.80-1.20); PROTHROMBIN TIME 14.1 SECS (9.5-12.5)
[2021-12-04 07:36] LABS: C-REACTIVE PROTEIN QUANT 1.2 mg/dL (0-0.5); CALCIUM 7.6 mg/dL (8.4-11.0); UREA NITROGEN, BLOOD 73 mg/dL (8-21)
--- NOTE | 2021-12-04 07:40 | NUR ---
CPAP TRIAL STARTED. NIF 28, RSBI 96, ETCO2 26, O2 SAT 100. RN NOTIFIED.
--- NOTE | 2021-12-04 07:40 | NUR ---
0740 CPAP TRIAL STARTED RSBI 96, NIF 28, ETCO2 26, O2 SAT 100. RN NOTIFIED Addendum: 12/04/21 at 0854 by Erin Pascal RT Amended: Links added.
--- NOTE | 2021-12-04 08:00 | NUR ---
Received pt from night stocker, pt is non-verbal endotrache in. trache to vent. ng tube feeding placement checked, no residual noted from tube feeding. patients at bedside. vitals wnl. will cont to monitor.
[2021-12-04 08:45] LABS: ERYTHROCYTE SEDIMENTATION RATE 2 MM/HR (0-15)
[2021-12-04 09:08] LABS: CHLORIDE 97 mmol/L (98-107); CREATININE 4.24 mg/dL (0.55-1.30); GLUCOSE 312 mg/dL (70-99); PHOSPHORUS 8.2 mg/dL (2.7-4.5); POTASSIUM 4.1 mmol/L (3.5-5.1); SODIUM SERUM 136 mmol/L (136-145)
[2021-12-04 09:12] LABS: ANION GAP 15 (5-15)
[2021-12-04] MEDS: METOPROLOL SUCCINATE 50 MG TAB.SR.24H (TOPROL XL) PO SCH ×2 (09:49→21:15)
[2021-12-04] MEDS: FAMOTIDINE PF 20 MG/2 ML VIAL IVP SCH ×2 (09:50→21:15)
[2021-12-04] MEDS: DILTIAZEM HCL 30 MG TABLET PO SCH ×3 (09:50→21:15)
--- NOTE | 2021-12-04 09:55 | NUR ---
0956 - PT EXTUBATED PER DR HOWARD, PLACED ON 3L NC, O2 SAT 96%. Addendum: 12/04/21 at 1051 by Erin Pascal RT Amended: Links added.
[2021-12-04] MEDS: MEROPENEM 500 MG in NS 50 ML IV SCH ×2 (09:59→21:16)
[2021-12-04] MEDS: VANCOMYCIN HCL ORAL SOLUTION 125 MG/5 ML, 150 ML PO SCH ×4 (10:02→21:16)
[2021-12-04] MEDS ORDERED: INSULIN NPH 100 UNITS/ML 10 ML VIAL SUBCUT ONE (12:15)
[2021-12-04] MEDS ORDERED: NALOXONE HCL 0.4 MG/ML AMP (NARCAN) IVP PRN (14:00)
[2021-12-04] MEDS ORDERED: MORPHINE 2 MG/ML INJ. SYRINGE IVP PRN (14:00)
[2021-12-04] MEDS: MORPHINE 2 MG/ML INJ. SYRINGE IVP PRN ×2 (14:31→23:52)
[2021-12-04] MEDS: hydrALAZINE HCL 20 MG/ML VIAL IVP PRN (17:39)
--- NOTE | 2021-12-04 19:00 | NUR ---
PT ENDORSED TO NIGHT NURSE. PT WAS EXTUBATED TODAY, PT ABLE TO TOLERATE WELL. REMAINED ON 02 4LI PER NC. BP STILL ELEVATED, GIVEN X1 HYDRALAZINE. 20 CC DRAINED FROM BILIARY DRAIN.
--- NOTE | 2021-12-04 19:05 | NUR ---
Opening notes Received report from endorsing morning shift Austyn RN for continuity of care. Patient is lying in bed in no signs of distress with significant other and daughter on the bedside. Patient have a left upper PICC line IV access, running is IVF NS @ 15mL/hr. Patient's vital signs blood pressure 159/92, heart rate 112, respirations 12, and SPO2 94% on nasal cannula @4L. Rectal tube is draining to gravity. Patient have a biliary duct on his right side. Bed is locked and in lowest position, call light button within reach, fall and safety precautions is in place.
[2021-12-04] MEDS: INSULIN GLARGINE 100 UNITS/ML 10 ML VIAL SUBCUT SCH (21:22)
[2021-12-05] VITALS (24 sets, daily range): BP systolic 91–189
[2021-12-05] MEDS: MORPHINE 2 MG/ML INJ. SYRINGE IVP PRN ×3 (04:34→20:31)
[2021-12-05] MEDS: hydrALAZINE HCL 20 MG/ML VIAL IVP PRN (05:52)
[2021-12-05] MEDS: INSULIN LISPRO SLIDING SCALE 100 UNITS/ML VIAL (humaLOG) SUBCUT PRN ×3 (05:54→16:49)
[2021-12-05 06:10] LABS: HEMOGLOBIN 12.1 g/dL (14.0-18.0); LYMPHOCYTES # (AUTO) 0.2 K/uL (1.0-5.5); LYMPHOCYTES % (AUTO) 1.7 % (20.5-51.5); MEAN CORPUSCULAR HEMOGLOBIN 30 pg (27-31); MEAN CORPUSCULAR HGB CONC 33 % (32-36); MEAN CORPUSCULAR VOLUME 91 fL (79.0-98.0); MONOCYTES # (AUTO) 0.1 K/uL (0.0-1.0); NEUTROPHILS # (AUTO) 11.7 K/uL (1.8-7.7); NEUTROPHILS % (AUTO) 97.3 % (40.0-70.0); RED BLOOD CELL COUNT(AUTO) 4.08 MIL/uL (4.2-6.2); RED CELL DISTRIBUTION WIDTH 19.5 % (9.0-15.0)
[2021-12-05] MEDS ORDERED: DEXAMETHASONE SOD PHOSPHATE 10 MG/ML VIAL ONE (06:44)
[2021-12-05] MEDS: DEXAMETHASONE SOD PHOSPHATE 4 MG/ML VIAL IVP SCH ×2 (06:46→13:04)
[2021-12-05 06:52] LABS: INR 1.4 (0.80-1.20); PROTHROMBIN TIME 14.1 SECS (9.5-12.5)
[2021-12-05 07:16] LABS: ALANINE AMINOTRANSFERASE 37 U/L (12-78); ALBUMIN 2.4 g/dL (3.4-4.8); ANION GAP 16 (5-15); ASPARTATE AMINOTRANSFERASE 27 U/L (10-37); CHLORIDE 96 mmol/L (98-107); CREATININE 4.79 mg/dL (0.55-1.30); GLUCOSE 339 mg/dL (70-99); PHOSPHORUS 9.1 mg/dL (2.7-4.5); POTASSIUM 4.4 mmol/L (3.5-5.1); SODIUM SERUM 134 mmol/L (136-145); TOTAL BILIRUBIN 10.2 mg/dL (0.0-1.0); UREA NITROGEN, BLOOD 97 mg/dL (8-21)
[2021-12-05 07:59] LABS: PLATELET COUNT (AUTO) 37 K/uL (130-430)
[2021-12-05 08:19] LABS: C-REACTIVE PROTEIN QUANT 0.8 mg/dL (0-0.5)
[2021-12-05] MEDS ORDERED: ALBUMIN HUMAN 25% 100 ML IV ONE (08:30)
[2021-12-05] MEDS ORDERED: MIDODRINE HCL 5 MG TABLET (PROAMATINE) PO ONE (08:30)
[2021-12-05] MEDS: MEROPENEM 500 MG in NS 50 ML IV SCH ×2 (09:00→20:27)
[2021-12-05 10:07] LABS: ERYTHROCYTE SEDIMENTATION RATE 2 MM/HR (0-15)
[2021-12-05] MEDS: DOCUSATE SODIUM 100 MG CAPSULE PO PRN (10:13)
[2021-12-05] MEDS: FAMOTIDINE PF 20 MG/2 ML VIAL IVP SCH ×2 (10:14→20:28)
--- NOTE | 2021-12-05 10:31 | NUR ---
CALLUM HAHN RN IS IN CHARGE OF THIS PATIENT/MW
[2021-12-05] MEDS ORDERED: LevALBUTEROL HCL 1.25 MG/0.5 ML *CONC.* VIAL.NEB (XOPENEX CONC.) INH ONE (12:30)
[2021-12-05] MEDS: DILTIAZEM HCL 30 MG TABLET PO SCH ×3 (14:24→20:26)
[2021-12-05] MEDS: METOPROLOL SUCCINATE 50 MG TAB.SR.24H (TOPROL XL) PO SCH ×2 (14:24→20:27)
[2021-12-05] MEDS: EPOETIN ALFA 10,000 UNITS/ML VIAL SUBCUT SCH (16:39)
[2021-12-05] MEDS: LevALBUTEROL HCL 1.25 MG/0.5 ML *CONC.* VIAL.NEB (XOPENEX CONC.) INH SCH (19:45)
[2021-12-05] MEDS: INSULIN GLARGINE 100 UNITS/ML 10 ML VIAL SUBCUT SCH (21:16)
[2021-12-06] VITALS (22 sets, daily range): BP systolic 115–193
[2021-12-06] MEDS: MORPHINE 2 MG/ML INJ. SYRINGE IVP PRN ×3 (00:08→21:57)
[2021-12-06] MEDS: INSULIN LISPRO SLIDING SCALE 100 UNITS/ML VIAL (humaLOG) SUBCUT PRN ×2 (00:08→05:19)
[2021-12-06] MEDS: LevALBUTEROL HCL 1.25 MG/0.5 ML *CONC.* VIAL.NEB (XOPENEX CONC.) INH SCH ×4 (01:01→19:45)
[2021-12-06] MEDS: DEXAMETHASONE SOD PHOSPHATE 4 MG/ML VIAL IVP SCH ×4 (03:07→18:24)
[2021-12-06 05:55] LABS: BASOPHILS % (AUTO) 0.1 % (0.0-2.0); HEMATOCRIT 35.8 % (36-54); HEMOGLOBIN 11.5 g/dL (14.0-18.0); LYMPHOCYTES # (AUTO) 0.2 K/uL (1.0-5.5); LYMPHOCYTES % (AUTO) 1.4 % (20.5-51.5); MEAN CORPUSCULAR HEMOGLOBIN 29 pg (27-31); MEAN CORPUSCULAR HGB CONC 32 % (32-36); MEAN CORPUSCULAR VOLUME 90 fL (79.0-98.0); MONOCYTES # (AUTO) 0.2 K/uL (0.0-1.0); MONOCYTES % (AUTO) 1.3 % (1.7-9.3); NEUTROPHILS # (AUTO) 12.6 K/uL (1.8-7.7); NEUTROPHILS % (AUTO) 97.2 % (40.0-70.0); RED BLOOD CELL COUNT(AUTO) 3.95 MIL/uL (4.2-6.2)
[2021-12-06 06:21] LABS: INR 1.5 (0.80-1.20); PROTHROMBIN TIME 14.7 SECS (9.5-12.5)
[2021-12-06 06:22] LABS: ALANINE AMINOTRANSFERASE 39 U/L (12-78); ALBUMIN 2.4 g/dL (3.4-4.8); ANION GAP 15 (5-15); ASPARTATE AMINOTRANSFERASE 27 U/L (10-37); CHLORIDE 99 mmol/L (98-107); CREATININE 3.91 mg/dL (0.55-1.30); GLUCOSE 181 mg/dL (70-99); POTASSIUM 4.1 mmol/L (3.5-5.1); SODIUM SERUM 135 mmol/L (136-145); TOTAL BILIRUBIN 10.2 mg/dL (0.0-1.0); UREA NITROGEN, BLOOD 73 mg/dL (8-21)
[2021-12-06 07:49] LABS: PLATELET COUNT (AUTO) 37 K/uL (130-430)
[2021-12-06 07:54] LABS: CALCIUM 7.2 mg/dL (8.4-11.0)
--- NOTE | 2021-12-06 08:28 | NUR ---
PAGED FOR ORDERS DIALED: [phone] SPOKE TO: LAMONT
[2021-12-06] MEDS: MEROPENEM 500 MG in NS 50 ML IV SCH ×2 (10:10→20:56)
[2021-12-06] MEDS: DILTIAZEM HCL 30 MG TABLET PO SCH ×3 (10:21→20:57)
[2021-12-06] MEDS: FAMOTIDINE PF 20 MG/2 ML VIAL IVP SCH ×2 (10:22→20:56)
[2021-12-06] MEDS: METOPROLOL SUCCINATE 25 MG TAB.SR.24H (TOPROL XL) PO SCH ×2 (10:22→20:58)
[2021-12-06] MEDS ORDERED: PHYTONADIONE 10 MG/ML AMP PO SCH (11:00)
--- NOTE | 2021-12-06 11:42 | NUR ---
PAGED FOR ORDERS DIALED: [phone] SPOKE TO: ESVIN
--- NOTE | 2021-12-06 12:16 | NUR ---
Paper Sales Manager COREY Ramos responded to a phone request for social service support from TRAILER ASSEMBLER Zee regarding patient's daughter needing a work letter COREY Ramos met with patient's daughter Tulio Tan. EPIC KALEIDOSCOPE ANALYST completed introductions and provided business card. She requested a letter depicting patient's time in ICU. EPIC KALEIDOSCOPE ANALYST provided 3 copies of a letter stating the following; To Whom It May Concern: This letter is to inform you that on November 14, 2021, [place] was admitted to the Intensive Care Unit of [facility]. No further information related to patients condition may be disclosed at this time in order to protect the rights of the patient per Health Insurance Portability and Accountability Act (HIPPA) and [place] patient privacy laws. Family members have and are currently at the hospital visiting and providing support to patient and family. Any courtesies you can afford her/him regarding their missed worked would be greatly appreciated during this difficult time. Please feel free to contact the hospital if you have questions or concerns. Thank you, COREY Rahman, [facility] Concrete Building Assembler ext [phone] EPIC KALEIDOSCOPE ANALYST will continue to be available as needed.
--- NOTE | 2021-12-06 14:05 | NUR ---
Dietitian Recommendations * Glucerna 1.2 at 70 ml/hr (goal rate), Free Water Flush: per MD via NGT Provides: 2016 kcal/day, 100 gm protein/day, and 1352 ml free water/day Meets: 94% of lower end of estimated caloric needs and 93% of upper end of estimated protein needs Please refer to Nutrition F/U for details.
--- NOTE | 2021-12-06 14:05 | NUR ---
Nutrition F/U Admitting Diagnosis Sepsis, acute embolism and thrombosis of unspecified vein Medical History Comment: Multiple MIs w/ cardiac stent placement, CABG, DM, HTN, BPH, CKD stage III, kidney stones w/ lithotripsy, gout. Pt also found w/ CHF, metabolic encephalopathy, severe malnutrition, elevated troponins, and CAD. SARS-CoV-2 Ag (Rapid) Negative 11/14, Hep C pending 11/14 Subjective Information: RD attended ICU rounds this morning, per pts primary RN, pt was extubated on 12/04, now on 2L NC, plan for swallow evaluation. RD informed RN that pt was on TF prior to intubation d/t poor PO intake and TF would likely continue to be necessary. Per RN, pt is less jaundiced and less edematous; minimal output form biliary drain; plan for thoracentesis is on hold d/t low platelet count and elevated INR. Per physician notes, pt has developed a collapse of the left lung most likely due to mucous plug. Per EMR review, last HD 12/05; Eric score 13, no PIs; 4+ pitting edema to generalized, B. arms and B. legs; NGT to L. nares; abd. is soft w/ active bowel sounds; TF infusing at 50 ml/hr, GRV 0 ml 12/06; 650 ml stool output 12/05. Tf at current rate yields 1440 kcals/day, 72 g protein/day, meeting 67% of lower end of estimated caloric needs and 85% of lower end of estimated protein needs. Current Diet Order/Nutrition Support: Glucerna 1.2 at 60 ml/hr, Free Water Flush: per MD via NGT x 4 days Education Provided Not Indicated Pertinent Medications: pepcid, lantus, decadron, SSI, morphine, haldol, colace PRN, Vit K, Procrit, Lopressor Pertinent Labs: WBC 13 H, Plt count 37 L, Na 135 L, BUN 73 H, Cr 3.91 H, BG 181 H, POC BG 220 H Height (Feet) 5 feet Height (Inches) 6.00 inches *NEW Weight (Pounds) 201 pounds 11/18 200#/90.7 kg 1# wt loss (11/28) 226#/102.7 kg 26# wt gain likely a/w fluid shifts r/t CKD BEDSCALE WT: 238# (12/02) Patient Weight 91.172 kg UBW 200-205# per significant other 11/24 Body Mass Index 32.44 kg/m2 %IBW 142 [place]/Adjusted Body Weight 142#/64.5 kg; adj. BW: 156#/71.3 kg Recent Weight Change No - unable to verify Weight Status Obese Usual Diet At Home unable to verify NEW Estimated Energy Expenditure (kcals/day) 7944-5887 kcals/day (30-35 kcals/kg Adj. IBW d/t obesity and sepsis) Estimated Protein Required (g/day) 85-107 (1.2-1.5 g/kg Adj. IBW d/t obesity, sepsis and CKD/HD) Estimated Fluid Required (l/day) Per criminalist technician d/t CKD and CHF Problem/Etiology/Signs/Symptoms Altered nutrition-related labs R/T renal dysfunction AEB abnormal Na, BUN, and Cr lab values. *Ongoing Increased nutritional needs R/T metabolic demands AEB estimated nutritional requirements for sepsis. *Ongoing Swallowing difficulty R/T unknown etiology AEB significant other report. *RN reported no chewing/swallowing issues 11/26 Expected Outcomes/Goals Monitor tolerance of intake w/ goal of pt meeting greater than 80% of estimated needs, labs trending WNL, normal GI function, skin integrity, wt maintenance. Dietitian Recommendations * Glucerna 1.2 at 70 ml/hr (goal rate), Free Water Flush: per MD via NGT Provides: 2016 kcal/day, 100 gm protein/day, and 1352 ml free water/day Meets: 94% of lower end of estimated caloric needs and 93% of upper end of estimated protein needs Follow Up High Risk: F/U in 2-3 days
--- NOTE | 2021-12-06 16:52 | NUR ---
ST EVALUATION COMPLETED. ST TX NOT INDICATED AT THIS TIME. RECOMMEND PO DIET OF PUREE/THIN LIQUID. 1:1 SUPERVISION FOR ASPIRATION PRECAUTIONS.
[2021-12-06] MEDS: INSULIN GLARGINE 100 UNITS/ML 10 ML VIAL SUBCUT SCH (20:58)
[2021-12-07] VITALS (22 sets, daily range): BP systolic 119–164
[2021-12-07] MEDS: DEXAMETHASONE SOD PHOSPHATE 4 MG/ML VIAL IVP SCH ×3 (00:27→12:00)
[2021-12-07] MEDS: INSULIN LISPRO SLIDING SCALE 100 UNITS/ML VIAL (humaLOG) SUBCUT PRN ×3 (00:29→13:10)
[2021-12-07 06:25] LABS: INR 1.4 (0.80-1.20); PROTHROMBIN TIME 14.2 SECS (9.5-12.5)
[2021-12-07] MEDS: LevALBUTEROL HCL 1.25 MG/0.5 ML *CONC.* VIAL.NEB (XOPENEX CONC.) INH SCH ×4 (08:01→19:41)
[2021-12-07] MEDS ORDERED: METOPROLOL SUCCINATE 25 MG TAB.SR.24H (TOPROL XL) PO SCH (09:00)
[2021-12-07] MEDS ORDERED: MIDODRINE HCL 5 MG TABLET (PROAMATINE) PO ONE (09:00)
[2021-12-07] MEDS ORDERED: ALBUMIN HUMAN 25% 50 ML IV ONE (09:00)
[2021-12-07] MEDS ORDERED: METOPROLOL SUCCINATE 50 MG TAB.SR.24H (TOPROL XL) PO SCH (09:04)
[2021-12-07] MEDS: MEROPENEM 500 MG in NS 50 ML IV SCH ×2 (09:52→21:51)
[2021-12-07] MEDS: DILTIAZEM HCL 30 MG TABLET PO SCH ×3 (09:52→21:53)
[2021-12-07] MEDS: FAMOTIDINE PF 20 MG/2 ML VIAL IVP SCH ×2 (09:52→21:52)
[2021-12-07] MEDS: MORPHINE 2 MG/ML INJ. SYRINGE IVP PRN (10:58)
[2021-12-07] MEDS ORDERED: PHYTONADIONE (Vitamin K) Oral Solution PO SCH (11:00)
[2021-12-07] MEDS: metroNIDAZOLE 250 mg/NS 50 ML IV SCH ×2 (15:37→22:56)
[2021-12-07] MEDS: EPOETIN ALFA 10,000 UNITS/ML VIAL SUBCUT SCH (18:52)
[2021-12-07] MEDS: INSULIN GLARGINE 100 UNITS/ML 10 ML VIAL SUBCUT SCH (21:53)
[2021-12-07] MEDS ORDERED: DEXAMETHASONE SOD PHOSPHATE 4 MG/ML VIAL IVP SCH (22:00)
[2021-12-08] VITALS: BP_SYST 135
[2021-12-08 01:00] VITALS: BP_SYST 99
[2021-12-08] MEDS: LevALBUTEROL HCL 1.25 MG/0.5 ML *CONC.* VIAL.NEB (XOPENEX CONC.) INH SCH (01:06)
[2021-12-08] MEDS: MORPHINE 2 MG/ML INJ. SYRINGE IVP PRN (01:30)
[2021-12-08 02:00] VITALS: BP_SYST 96
[2021-12-08 03:00] VITALS: BP_SYST 80
--- NOTE | 2021-12-08 03:11 | NUR ---
Undersigned returned from lunch to find patient in cardiac arrest with ACLS being actively performed by staff. See Code Blue record. ED MD called time of 0330. Family at bedside during code, Daughter called and spoke with doctor during code.
--- NOTE | 2021-12-08 03:30 | NUR ---
RT NOTES RESPONDED TO CODE MALLORIE CALLED AT 0308 CPR STARTED, 100% FIO2 BEING ADMINISTERED VIA AMBU BAG. ASSISTED DR WITH INTUBATION. 7.5 ETT INSERTED SECURED AT 23CM @ LIP LINE. ROSC NOT ACHIEVED DURING CPR. DR CALLED CODE AT 0330.
--- NOTE | 2021-12-08 03:35 | NUR ---
notify of dr ismael reyna from admitting all consults
[2021-12-08] MEDS ORDERED: EPINEPHrine JECT 0.1 MG/ML SYR ONE (04:00)
[2021-12-08] MEDS ORDERED: LIDOCAINE JECT 2% PF 100 MG/5ML SYRINGE ONE (04:00)
[2021-12-08] MEDS ORDERED: CALCIUM CHLORIDE 1 GM/10 ML DISP.SYRIN (14 mEq Ca++/SYR) ONE (04:00)
--- NOTE | 2021-12-08 05:14 | NUR ---
Family went home. No mortuary chosen at this time. No nursing road supervisor on duty now. Will communicate with security regarding holding the body.
== END 2021-12-08 03:30 | DRG 870 ==
LOC: SED 08:13 → SIC 12:21 → SMU 11-26 23:12 → STU 11-26 23:24 → SIC 11-27 03:50
PROVIDERS: ADMIT Internal Medicine Hospice and Palliative Medicine; ATTEND Internal Medicine Hospice and Palliative Medicine
PROC: 02HV33Z Insertion of Infusion Device into Superior Vena Cava, Percutaneous Approach (ICD-10-PCS; 2021-11-14)
PROC: B548ZZA Ultrasonography of Superior Vena Cava, Guidance (ICD-10-PCS; 2021-11-14)
PROC: 02HV33Z Insertion of Infusion Device into Superior Vena Cava, Percutaneous Approach (ICD-10-PCS; 2021-11-16)
PROC: B548ZZA Ultrasonography of Superior Vena Cava, Guidance (ICD-10-PCS; 2021-11-16)
PROC: 5A1D70Z Performance of Urinary Filtration, Intermittent, Less than 6 Hours Per Day (ICD-10-PCS; 2021-11-17)
PROC: 5A1D70Z Performance of Urinary Filtration, Intermittent, Less than 6 Hours Per Day (ICD-10-PCS; 2021-11-18)
PROC: 5A1D70Z Performance of Urinary Filtration, Intermittent, Less than 6 Hours Per Day (ICD-10-PCS; 2021-11-19)
PROC: 5A1D70Z Performance of Urinary Filtration, Intermittent, Less than 6 Hours Per Day (ICD-10-PCS; 2021-11-21)
PROC: 30233K1 Transfusion of Nonautologous Frozen Plasma into Peripheral Vein, Percutaneous Approach (ICD-10-PCS; 2021-11-22)
PROC: 0F9430Z Drainage of Gallbladder with Drainage Device, Percutaneous Approach (ICD-10-PCS; 2021-11-22)
PROC: 5A1D70Z Performance of Urinary Filtration, Intermittent, Less than 6 Hours Per Day (ICD-10-PCS; 2021-11-23)
PROC: 5A1D70Z Performance of Urinary Filtration, Intermittent, Less than 6 Hours Per Day (ICD-10-PCS; 2021-11-24)
PROC: 02HV33Z Insertion of Infusion Device into Superior Vena Cava, Percutaneous Approach (ICD-10-PCS; 2021-11-25)
PROC: B548ZZA Ultrasonography of Superior Vena Cava, Guidance (ICD-10-PCS; 2021-11-25)
PROC: 5A1D70Z Performance of Urinary Filtration, Intermittent, Less than 6 Hours Per Day (ICD-10-PCS; 2021-11-25)
PROC: 5A1D70Z Performance of Urinary Filtration, Intermittent, Less than 6 Hours Per Day (ICD-10-PCS; 2021-11-26)
PROC: 5A1D70Z Performance of Urinary Filtration, Intermittent, Less than 6 Hours Per Day (ICD-10-PCS; 2021-11-27)
PROC: 30233N1 Transfusion of Nonautologous Red Blood Cells into Peripheral Vein, Percutaneous Approach (ICD-10-PCS; 2021-11-28)
PROC: 5A1955Z Respiratory Ventilation, Greater than 96 Consecutive Hours (ICD-10-PCS; principal; 2021-11-29)
PROC: 0BH17EZ Insertion of Endotracheal Airway into Trachea, Via Natural or Artificial Opening (ICD-10-PCS; 2021-11-29)
PROC: 5A1D70Z Performance of Urinary Filtration, Intermittent, Less than 6 Hours Per Day (ICD-10-PCS; 2021-11-29)
PROC: 5A1D70Z Performance of Urinary Filtration, Intermittent, Less than 6 Hours Per Day (ICD-10-PCS; 2021-12-01)
PROC: 5A1D70Z Performance of Urinary Filtration, Intermittent, Less than 6 Hours Per Day (ICD-10-PCS; 2021-12-03)
PROC: 5A1D70Z Performance of Urinary Filtration, Intermittent, Less than 6 Hours Per Day (ICD-10-PCS; 2021-12-05)
PROC: 30233R1 Transfusion of Nonautologous Platelets into Peripheral Vein, Percutaneous Approach (ICD-10-PCS; 2021-12-06)
PROC: 5A1D70Z Performance of Urinary Filtration, Intermittent, Less than 6 Hours Per Day (ICD-10-PCS; 2021-12-07)
PROC: 5A12012 Performance of Cardiac Output, Single, Manual (ICD-10-PCS; 2021-12-08)
DX: A41.89 Other specified sepsis (principal); R65.21 Severe sepsis with septic shock; N17.0 Acute kidney failure with tubular necrosis; I21.A1 Myocardial infarction type 2; D65 Disseminated intravascular coagulation [defibrination syndrome]; E43 Unspecified severe protein-calorie malnutrition; J18.9 Pneumonia, unspecified organism; J96.01 Acute respiratory failure with hypoxia; N18.6 End stage renal disease; G93.41 Metabolic encephalopathy; I50.21 Acute systolic (congestive) heart failure; B37.49 Other urogenital candidiasis; E87.1 Hypo-osmolality and hyponatremia; I42.9 Cardiomyopathy, unspecified; R18.8 Other ascites; K92.1 Melena; I13.2 Hypertensive heart and chronic kidney disease with heart failure and with stage 5 chronic kidney disease, or end stage renal disease; K80.62 Calculus of gallbladder and bile duct with acute cholecystitis without obstruction; T82.41XA Breakdown (mechanical) of vascular dialysis catheter, initial encounter; D63.8 Anemia in other chronic diseases classified elsewhere; E11.22 Type 2 diabetes mellitus with diabetic chronic kidney disease; E11.649 Type 2 diabetes mellitus with hypoglycemia without coma; E78.5 Hyperlipidemia, unspecified; E83.39 Other disorders of phosphorus metabolism; E83.42 Hypomagnesemia; E83.51 Hypocalcemia; E83.52 Hypercalcemia; E88.09 Other disorders of plasma-protein metabolism, not elsewhere classified; I25.10 Atherosclerotic heart disease of native coronary artery without angina pectoris; I46.9 Cardiac arrest, cause unspecified; I48.91 Unspecified atrial fibrillation; J45.909 Unspecified asthma, uncomplicated; E66.9 Obesity, unspecified; K72.90 Hepatic failure, unspecified without coma; M10.9 Gout, unspecified; Y83.8 Other surgical procedures as the cause of abnormal reaction of the patient, or of later complication, without mention of misadventure at the time of the procedure; Z20.822 Contact with and (suspected) exposure to COVID-19; N40.0 Benign prostatic hyperplasia without lower urinary tract symptoms; Z78.1 Physical restraint status; Z79.4 Long term (current) use of insulin; Z79.899 Other long term (current) drug therapy; Z87.442 Personal history of urinary calculi; Z87.891 Personal history of nicotine dependence; Z95.1 Presence of aortocoronary bypass graft; Z95.5 Presence of coronary angioplasty implant and graft; Z99.2 Dependence on renal dialysis; Z79.84 Long term (current) use of oral hypoglycemic drugs; Z79.82 Long term (current) use of aspirin; Z68.36 Body mass index [BMI] 36.0-36.9, adult; Y92.89 Other specified places as the place of occurrence of the external cause
CPT/HCPCS: 36415; 36600; 47531; 71045; 74018; 76376; 76604; 76700-TC; 78226; 80048; 80053; 80061; 80074; 80076; 80202; 82103; 82105; 82150; 82272; 82306; 82378; 82390; 82607; 82728; 82746; 82800-TC; 82803-TC; 82962; 83036; 83516; 83540; 83550; 83605; 83690; 83735; 83880; 84100; 84260; 84443; 84484; 85007; 85025; 85027; 85049-TC; 85379; 85384; 85610-TC; 85651-TC; 85730-TC; 86022; 86038; 86140; 86301; 86376; 86753; 86886; 86900; 86901; 86920; 87040; 87070-TC; 87075-TC; 87081; 87086; 87205-TC; 87230-TC; 90935; 90937; 92610-GN; 92950; 93005; 93306; 94002; 94003; 94640; 94668; 94760; 96374; 96375; 97110-GP; 99291; A9537; C1750; G0378; G0480; G0481; J0171; J0360; J0610; J0696; J0780; J0885; J1030; J1100; J1450; J1630; J1644; J1815; J1940; J2001; J2060; J2185; J2248; J2250; J2270; J2405; J2543; J2704; J2930; J2997; J3370; J3430; J3490; J7050; J7060; J7612; P9021; P9034; P9046; P9059; Q5106; Q9967